=== PATIENT | male | born 1940 | race Caucasian/White ===

== ENCOUNTER 2017-07-05 10:04 | Emergency (ER) | payer MEDICARE ==
[~2017-07-05] VITALS: Ht 188 cm; Wt 82.5 kg
[~2017-07-05 10:04] MED LIST: ASPI325 PO; Aspir 8181 MG PO; Augmentin 875-1 EACH PO; Avodart0.5 MG PO; CHOL10002 PO; CIPR500 PO; Carbidopa-Levo1 EAC4 PO; DILT180 PO; DUTA.5 PO; Fish Oil 10001000 MG PO; Hydrocortiso453.6 G3 TP; IBUP400 PO; LEVFLO250 PO; LOSA50 PO; METR59TL TOP; Metronidazole T45 GM; Micro-K10 MEQ PO; Nicoderm Cq1 EAC1 TOP; Oxybutynin Chlo10 MG PO; POTA8 PO; Pravastatin Sod40 MG PO; Primidone50 MG PO; SINEMET PO; TAMS.4ER PO
== END 2017-07-05 13:17 | disposition home or self-care (01) ==
LOC: ER 10:04
DX: Z45.010 Encounter for checking and testing of cardiac pacemaker pulse generator [battery] (principal); I10 Essential (primary) hypertension; F17.210 Nicotine dependence, cigarettes, uncomplicated; Z79.899 Other long term (current) drug therapy; Z79.82 Long term (current) use of aspirin
CPT/HCPCS: 93005; 93010; 99283

== ENCOUNTER 2017-11-15 13:10 | Inpatient (IN) | payer MEDICARE ==
[~2017-11-15] VITALS: Ht 182.9 cm; Wt 94.3 kg
[2017-11-15 13:41] LABS: BASOPHILS ABSOLUTE AUTO 0.04 K/mm3 (0.00-0.23); BASOPHILS PERCENT AUTO 1 % (0-2); EOSINOPHILS ABSOLUTE AUTO 0.27 K/mm3 (0.00-0.68); EOSINOPHILS PERCENT AUTO 4 % (0-6); Hematocrit 47.1 % (37.0-53.0); Hemoglobin 14.6 g/dL (13.5-17.5); IMMATURE GRAN ABSOLUTE AUTO 0.02 K/mm3 (0.00-0.10); IMMATURE GRAN PERCENT AUTO 0 % (0-1); LYMPHOCYTES ABSOLUTE AUTO 1.36 K/mm3 (0.84-5.20); LYMPHOCYTES PERCENT AUTO 21 % (21-46); MONOCYTES ABSOLUTE AUTO 0.56 K/mm3 (0.16-1.47); MONOCYTES PERCENT AUTO 9 % (4-13); Mean Corpuscular HGB 28.9 pg (26.0-34.0); Mean Corpuscular Volume 93 fL (80-100); Mean Platelet Volume 10.5 fL (9.1-12.4); NEUTROPHILS PERCENT AUTO 65 % (41-73); Platelet Count 177 K/mm3 (150-400); RDW Coefficient Variation 13.9 % (11.7-14.2); RDW Standard Deviation 47.8 fL (35.1-46.3); Red Blood Cell Count 5.06 M/mm3 (4.30-5.90); White Blood Cell Count 6.45 K/mm3 (4.00-11.30)
[2017-11-15 13:48] LABS: Alanine Aminotransfer (ALT/SGP 11 U/L (12-78); Albumin, Blood 3.3 g/dL (3.4-5.0); Albumin/Globulin Ratio 0.9 (0.8-1.8); Alk Phos 57 U/L (50-136); Anion Gap 4 mmol/L (6-16); Aspartate Aminotrans (AST/SGOT 19 U/L (12-37); Bilirubin, Total 0.4 mg/dL (0.1-1.0); Blood Urea Nitrogen 23 mg/dL (8-24); Bun/Creatinine Ratio 25.1 (12.0-20.0); CO2, Blood 36 mmol/L (21-32); Calcium, Blood 8.6 mg/dL (8.5-10.1); Chloride, Blood 107 mmol/L (98-108); Creatinine, Blood 0.92 mg/dL (0.60-1.20); Globulin, Blood 3.8 g/dL (2.2-4.0); Glomerular Filtration Rate >60 (60-); Glucose, Blood 103 mg/dL (70-99); Potassium, Blood 3.7 mmol/L (3.5-5.5); Sodium, Blood 147 mmol/L (136-145); Total Protein, Blood 7.1 g/dL (6.4-8.2); Troponin I <0.015 ng/mL (0.000-0.040)
[2017-11-15] MEDS ORDERED: FOLI400 PO (13:56)
[2017-11-15] MEDS ORDERED: RIVASTIGMINE4.5 MG PO (13:58)
[2017-11-15] MEDS ORDERED: FURO20 PO (14:00)
[2017-11-15 16:44] LABS: PCO2 Arterial 73.4 mmHg (35-45); PO2 Arterial 55.1 mmHg (80-100); pH Blood Arterial 7.31 (7.35-7.45)
[2017-11-15 17:27] LABS: Magnesium, Blood 2.2 mg/dL (1.6-2.4)
[2017-11-15 20:19] LABS: PO2 Arterial 70.5 mmHg (80-100); pH Blood Arterial 7.32 (7.35-7.45)
[2017-11-16 03:13] LABS: Source, Urine Catheter
[2017-11-16 03:16] LABS: Bilirubin, Urine Neg (Neg); Blood, Urine 4+ (Neg); Glucose Qualitative, Urine Neg (Neg); Ketones, Urine Neg (Neg); Leukocyte Esterase, Urine Neg (Neg); Nitrite, Urine Pos (Neg); Protein, Urine 3+ (Neg); Urobilinogen, Urine NORM (Normal)
[2017-11-16 03:17] LABS: Appearance, Urine Clear (Clear); Color, Urine Yellow (P-Yellow)
[2017-11-16 03:21] LABS: Bacteria Few /hpf; Squamous Epithelial Cells Not Seen /hpf (Few)
[2017-11-16 03:39] LABS: BASOPHILS ABSOLUTE AUTO 0.01 K/mm3 (0.00-0.23); BASOPHILS PERCENT AUTO 0 % (0-2); EOSINOPHILS PERCENT AUTO 0 % (0-6); Hemoglobin 14.6 g/dL (13.5-17.5); IMMATURE GRAN ABSOLUTE AUTO 0.03 K/mm3 (0.00-0.10); IMMATURE GRAN PERCENT AUTO 0 % (0-1); LYMPHOCYTES ABSOLUTE AUTO 0.45 K/mm3 (0.84-5.20); LYMPHOCYTES PERCENT AUTO 5 % (21-46); MONOCYTES ABSOLUTE AUTO 0.18 K/mm3 (0.16-1.47); MONOCYTES PERCENT AUTO 2 % (4-13); Mean Corpuscular HGB 29.1 pg (26.0-34.0); Mean Corpuscular HGB Conc 31.7 g/dL (31.5-36.5); Mean Corpuscular Volume 92 fL (80-100); Mean Platelet Volume 10.2 fL (9.1-12.4); NEUTROPHILS ABSOLUTE AUTO 9.04 K/mm3 (1.96-9.15); NEUTROPHILS PERCENT AUTO 93 % (41-73); Platelet Count 131 K/mm3 (150-400); RDW Coefficient Variation 13.9 % (11.7-14.2); RDW Standard Deviation 46.8 fL (35.1-46.3); Red Blood Cell Count 5.02 M/mm3 (4.30-5.90); White Blood Cell Count 9.71 K/mm3 (4.00-11.30)
[2017-11-16 04:01] LABS: Anion Gap 10 mmol/L (6-16); Blood Urea Nitrogen 24 mg/dL (8-24); CO2, Blood 27 mmol/L (21-32); Calcium, Blood 8.2 mg/dL (8.5-10.1); Chloride, Blood 110 mmol/L (98-108); Creatinine, Blood 0.75 mg/dL (0.60-1.20); Glomerular Filtration Rate >60 (60-); Glucose, Blood 146 mg/dL (70-99); Potassium, Blood 3.8 mmol/L (3.5-5.5); Sodium, Blood 147 mmol/L (136-145); Troponin I <0.015 ng/mL (0.000-0.040)
[2017-11-17] MEDS ORDERED: Acetaminophen325 M1 PO (11:40)
[2017-11-17] MEDS ORDERED: PRED20 PO (11:41)
[2017-11-17] MEDS ORDERED: LEVOFLOXACIN750 MG PO (11:41)
== END 2017-11-17 14:31 | disposition home or self-care (01) | DRG 193 ==
LOC: ER 13:10 → ICUE 16:55 → ICUW 16:55 → ICUE 18:07 → MEDS 11-17 07:53 → ENPENDDIS 11-17 10:48 → MEDS 11-17 14:31
PROVIDERS: Emergency Medicine; Nurse Practitioner Acute Care
DX: J18.9 Pneumonia, unspecified organism (principal); J96.01 Acute respiratory failure with hypoxia; J96.02 Acute respiratory failure with hypercapnia; J44.0 Chronic obstructive pulmonary disease with (acute) lower respiratory infection; J44.1 Chronic obstructive pulmonary disease with (acute) exacerbation; G20 Parkinson's disease; E78.5 Hyperlipidemia, unspecified; F17.210 Nicotine dependence, cigarettes, uncomplicated; I10 Essential (primary) hypertension; R33.9 Retention of urine, unspecified
CPT/HCPCS: 36415; 36600; 71046; 71260; 80048; 80053; 81001; 82803; 83735; 83880; 84145; 84484; 85025; 87086; 87449; 92610; 93005; 93010; 94640; 94660; 96374; 99285; G8996; G8997; G8998; J0696; J1650; J1956; J2930; J7030; J7120; Q9967

== ENCOUNTER 2018-08-28 16:35 | Emergency (ER) | payer MEDICARE ==
[~2018-08-28] VITALS: Ht 188 cm; Wt 97.5 kg
[~2018-08-28 16:35] MED LIST changes: +Acetaminophen325 M1 PO; +FOLI400 PO; +FURO20 PO; +LEVOFLOXACIN750 MG PO; +PRED20 PO; +PRIM250 PO; -Primidone50 MG PO; +RIVASTIGMINE4.5 MG PO
[2018-08-28 17:38] LABS: Alanine Aminotransfer (ALT/SGP 9 U/L (12-78); Albumin, Blood 3.1 g/dL (3.4-5.0); Albumin/Globulin Ratio 0.9 (0.8-1.8); Alk Phos 105 U/L (50-136); Anion Gap 5 mmol/L (6-16); Aspartate Aminotrans (AST/SGOT 23 U/L (12-37); Blood Urea Nitrogen 15 mg/dL (8-24); Bun/Creatinine Ratio 19.4 (12.0-20.0); CO2, Blood 30 mmol/L (21-32); Calcium, Blood 8.6 mg/dL (8.5-10.1); Chloride, Blood 106 mmol/L (98-108); Creatinine, Blood 0.77 mg/dL (0.60-1.20); Globulin, Blood 3.5 g/dL (2.2-4.0); Glomerular Filtration Rate >60 (60-); Glucose, Blood 90 mg/dL (70-99); Potassium, Blood 3.6 mmol/L (3.5-5.5); Sodium, Blood 141 mmol/L (136-145); Total Protein, Blood 6.6 g/dL (6.4-8.2); Troponin I 0.021 ng/mL (0.000-0.040)
[2018-08-28 18:13] LABS: BASOPHILS ABSOLUTE AUTO 0.05 K/mm3 (0.00-0.23); BASOPHILS PERCENT AUTO 1 % (0-2); EOSINOPHILS PERCENT AUTO 3 % (0-6); Hematocrit 46.8 % (37.0-53.0); Hemoglobin 15.1 g/dL (13.5-17.5); IMMATURE GRAN ABSOLUTE AUTO 0.01 K/mm3 (0.00-0.10); IMMATURE GRAN PERCENT AUTO 0 % (0-1); LYMPHOCYTES ABSOLUTE AUTO 1.23 K/mm3 (0.84-5.20); LYMPHOCYTES PERCENT AUTO 21 % (21-46); MONOCYTES ABSOLUTE AUTO 0.55 K/mm3 (0.16-1.47); MONOCYTES PERCENT AUTO 9 % (4-13); Mean Corpuscular HGB 30.1 pg (26.0-34.0); Mean Corpuscular HGB Conc 32.3 g/dL (31.5-36.5); Mean Corpuscular Volume 93 fL (80-100); Mean Platelet Volume 10.6 fL (9.1-12.4); NEUTROPHILS ABSOLUTE AUTO 3.92 K/mm3 (1.96-9.15); NEUTROPHILS PERCENT AUTO 66 % (41-73); Platelet Count 166 K/mm3 (150-400); RDW Coefficient Variation 13.5 % (11.7-14.2); RDW Standard Deviation 46.2 fL (35.1-46.3); Red Blood Cell Count 5.02 M/mm3 (4.30-5.90); White Blood Cell Count 5.96 K/mm3 (4.00-11.30)
[2018-08-31] MEDS ORDERED: DUTA.5 PO (15:45)
[2018-09-01] MEDS ORDERED: CULTURELLE1 EACH PO (16:25)
[2018-09-01] MEDS ORDERED: K-Dur20 MEQ PO (16:28)
== END 2018-08-28 19:24 | disposition home or self-care (01) ==
LOC: ER 16:35
PROVIDERS: Emergency Medicine
DX: E86.0 Dehydration (principal); R19.7 Diarrhea, unspecified; I10 Essential (primary) hypertension; G20 Parkinson's disease; F02.80 Dementia in other diseases classified elsewhere, unspecified severity, without behavioral disturbance, psychotic disturbance, mood disturbance, and anxiety; Z79.899 Other long term (current) drug therapy; Z79.52 Long term (current) use of systemic steroids
CPT/HCPCS: 36415; 71046; 80053; 83735; 83880; 84484; 85025; 93005; 93010; 96360; 96361; 99284-25; J7030

== ENCOUNTER 2018-12-11 13:04 | Emergency (ER) | payer MEDICARE ==
[~2018-12-11] VITALS: Ht 188 cm; Wt 93.0 kg
[~2018-12-11 13:04] MED LIST changes: +CULTURELLE1 EACH PO; +K-Dur20 MEQ PO; +LOPE2C PO
[2018-12-11 13:28] LABS: BASOPHILS ABSOLUTE AUTO 0.03 K/mm3 (0.00-0.23); BASOPHILS PERCENT AUTO 1 % (0-2); EOSINOPHILS ABSOLUTE AUTO 0.23 K/mm3 (0.00-0.68); EOSINOPHILS PERCENT AUTO 4 % (0-6); Hematocrit 46.3 % (37.0-53.0); Hemoglobin 14.8 g/dL (13.5-17.5); IMMATURE GRAN PERCENT AUTO 0 % (0-1); LYMPHOCYTES ABSOLUTE AUTO 2.12 K/mm3 (0.84-5.20); LYMPHOCYTES PERCENT AUTO 37 % (21-46); MONOCYTES ABSOLUTE AUTO 0.44 K/mm3 (0.16-1.47); MONOCYTES PERCENT AUTO 8 % (4-13); Mean Corpuscular HGB 29.4 pg (26.0-34.0); Mean Corpuscular Volume 92 fL (80-100); Mean Platelet Volume 10.4 fL (9.1-12.4); NEUTROPHILS ABSOLUTE AUTO 2.87 K/mm3 (1.96-9.15); NEUTROPHILS PERCENT AUTO 51 % (41-73); Platelet Count 176 K/mm3 (150-400); RDW Coefficient Variation 14.7 % (11.7-14.2); RDW Standard Deviation 49.8 fL (35.1-46.3); Red Blood Cell Count 5.04 M/mm3 (4.30-5.90); White Blood Cell Count 5.69 K/mm3 (4.00-11.30)
[2018-12-11 13:54] LABS: Alanine Aminotransfer (ALT/SGP 9 U/L (12-78); Albumin, Blood 3.1 g/dL (3.4-5.0); Albumin/Globulin Ratio 0.9 (0.8-1.8); Alk Phos 66 U/L (50-136); Anion Gap 3 mmol/L (6-16); Aspartate Aminotrans (AST/SGOT 18 U/L (12-37); Bilirubin, Total 0.7 mg/dL (0.1-1.0); Blood Urea Nitrogen 24 mg/dL (8-24); CO2, Blood 30 mmol/L (21-32); Calcium, Blood 8.6 mg/dL (8.5-10.1); Chloride, Blood 111 mmol/L (98-108); Creatinine, Blood 1.09 mg/dL (0.60-1.20); Globulin, Blood 3.3 g/dL (2.2-4.0); Glomerular Filtration Rate >60 (60-); Glucose, Blood 97 mg/dL (70-99); Potassium, Blood 3.6 mmol/L (3.5-5.5); Sodium, Blood 144 mmol/L (136-145); Total Protein, Blood 6.4 g/dL (6.4-8.2); Troponin I <0.015 ng/mL (0.000-0.040)
[2018-12-11 14:14] LABS: Source, Urine Clean Catch
[2018-12-11 14:24] LABS: Bilirubin, Urine Neg (Neg); Blood, Urine 1+ (Neg); Glucose Qualitative, Urine Neg (Neg); Ketones, Urine Neg (Neg); Leukocyte Esterase, Urine Neg (Neg); Nitrite, Urine Pos (Neg); Protein, Urine 2+ (Neg); Specific Gravity, Urine 1.015 (1.003-1.022); Urobilinogen, Urine NORM (Normal)
[2018-12-11 14:32] LABS: Appearance, Urine Clear (Clear); Color, Urine Yellow (P-Yellow)
[2018-12-11 14:33] LABS: Squamous Epithelial Cells Rare /hpf (Few); White Blood Cells, Urine 0-2 /hpf (0-5)
[2018-12-11 14:34] LABS: Bacteria Rare /hpf; Hyaline Casts 0-2 /lpf (0-2); Mucus Mod (0-Heavy)
[2018-12-11] MEDS ORDERED: Zithromax250 MG PO (15:14)
== END 2018-12-11 16:59 | disposition home or self-care (01) ==
LOC: ER 13:04
PROVIDERS: Emergency Medicine
DX: J18.9 Pneumonia, unspecified organism (principal); R53.1 Weakness; Z79.899 Other long term (current) drug therapy; I10 Essential (primary) hypertension; Z86.73 Personal history of transient ischemic attack (TIA), and cerebral infarction without residual deficits
CPT/HCPCS: 51701; 71046; 80053; 81001; 83880; 84484; 85025; 93005; 93010; 99285-25

== ENCOUNTER 2018-12-21 12:47 | Emergency (ER) | payer MEDICARE ==
[~2018-12-21] VITALS: Ht 188 cm; Wt 95.2 kg
[~2018-12-21 12:47] MED LIST changes: +Zithromax250 MG PO
[2018-12-21 13:43] LABS: Source, Urine Catheter
[2018-12-21 14:31] LABS: Bilirubin, Urine Neg (Neg); Blood, Urine 3+ (Neg); Glucose Qualitative, Urine Neg (Neg); Ketones, Urine Neg (Neg); Leukocyte Esterase, Urine 1+ (Neg); Nitrite, Urine Pos (Neg); Protein, Urine 3+ (Neg); Urobilinogen, Urine NORM (Normal)
[2018-12-21 14:43] LABS: Appearance, Urine Hazy (Clear); Color, Urine Yellow (P-Yellow)
[2018-12-21 14:45] LABS: Bacteria Many /hpf; Squamous Epithelial Cells Not Seen /hpf (Few); White Blood Cells, Urine 0-2 /hpf (0-5)
[2018-12-21] MEDS ORDERED: CEPH500 PO (15:04)
== END 2018-12-21 15:12 | disposition home or self-care (01) ==
LOC: ER 12:47
PROVIDERS: Physician Assistant
DX: N39.0 Urinary tract infection, site not specified (principal); I10 Essential (primary) hypertension; G20 Parkinson's disease; F02.80 Dementia in other diseases classified elsewhere, unspecified severity, without behavioral disturbance, psychotic disturbance, mood disturbance, and anxiety; F17.210 Nicotine dependence, cigarettes, uncomplicated; Z79.899 Other long term (current) drug therapy
CPT/HCPCS: 51798; 81001; 87086; 99283

== ENCOUNTER 2019-02-15 22:55 | Inpatient (IN) | payer MEDICARE ==
[~2019-02-15] VITALS: Ht 182.9 cm; Wt 96.6 kg
[~2019-02-15 22:55] MED LIST changes: +CEPH500 PO
[2019-02-15 23:10] LABS: Hematocrit 48.4 % (37.0-53.0); Hemoglobin 15.5 g/dL (13.5-17.5); Mean Corpuscular HGB 29.5 pg (26.0-34.0); Mean Corpuscular Volume 92 fL (80-100); Mean Platelet Volume 9.9 fL (9.1-12.4); Platelet Count 148 K/mm3 (150-400); RDW Coefficient Variation 14.1 % (11.7-14.2); RDW Standard Deviation 47.8 fL (35.1-46.3); Red Blood Cell Count 5.25 M/mm3 (4.30-5.90); White Blood Cell Count 5.62 K/mm3 (4.00-11.30)
[2019-02-15 23:30] LABS: BAND PERCENT MAN 24 % (0-8); BASOPHILS PERCENT MAN 0 % (0-2); EOSINOPHILS PERCENT MAN 0 % (0-6); LYMPHOCYTES ABSOLUTE MAN 0.28 K/mm3 (0.84-5.20); LYMPHOCYTES PERCENT MAN 5 % (21-46); MONOCYTES ABSOLUTE MAN 0.28 K/mm3 (0.16-1.47); MONOCYTES PERCENT MAN 5 % (4-13); NEUTROPHILS ABSOLUTE MAN 5.05 K/mm3 (1.96-9.15); SEG NEUTROPHILS PERCENT MAN 66 % (41-73); TOTAL CELLS COUNTED 100
[2019-02-15 23:31] LABS: Alanine Aminotransfer (ALT/SGP 80 U/L (12-78); Albumin, Blood 3.1 g/dL (3.4-5.0); Albumin/Globulin Ratio 0.9 (0.8-1.8); Alk Phos 203 U/L (50-136); Anion Gap 6 mmol/L (6-16); Aspartate Aminotrans (AST/SGOT 460 U/L (12-37); Bilirubin, Total 3.5 mg/dL (0.1-1.0); Blood Urea Nitrogen 21 mg/dL (8-24); Bun/Creatinine Ratio 22.8 (12.0-20.0); CO2, Blood 29 mmol/L (21-32); Calcium, Blood 8.3 mg/dL (8.5-10.1); Chloride, Blood 110 mmol/L (98-108); Creatinine, Blood 0.92 mg/dL (0.60-1.20); Globulin, Blood 3.6 g/dL (2.2-4.0); Glomerular Filtration Rate >60 (60-); Glucose, Blood 145 mg/dL (70-99); Potassium, Blood 3.1 mmol/L (3.5-5.5); Sodium, Blood 145 mmol/L (136-145); Total Protein, Blood 6.7 g/dL (6.4-8.2); Troponin I 0.017 ng/mL (0.000-0.040)
[2019-02-16 06:25] LABS: Hematocrit 47.6 % (37.0-53.0); Hemoglobin 15.3 g/dL (13.5-17.5); Mean Corpuscular HGB 29.8 pg (26.0-34.0); Mean Corpuscular HGB Conc 32.1 g/dL (31.5-36.5); Mean Corpuscular Volume 93 fL (80-100); Mean Platelet Volume 10.6 fL (9.1-12.4); Platelet Count 146 K/mm3 (150-400); RDW Coefficient Variation 14.6 % (11.7-14.2); RDW Standard Deviation 49.8 fL (35.1-46.3); Red Blood Cell Count 5.13 M/mm3 (4.30-5.90); White Blood Cell Count 11.25 K/mm3 (4.00-11.30)
[2019-02-16 06:39] LABS: Alanine Aminotransfer (ALT/SGP 59 U/L (12-78); Albumin, Blood 2.9 g/dL (3.4-5.0); Albumin/Globulin Ratio 0.9 (0.8-1.8); Alk Phos 181 U/L (50-136); Anion Gap 5 mmol/L (6-16); Aspartate Aminotrans (AST/SGOT 322 U/L (12-37); Bilirubin, Total 4.6 mg/dL (0.1-1.0); Blood Urea Nitrogen 21 mg/dL (8-24); Bun/Creatinine Ratio 21.2 (12.0-20.0); CO2, Blood 28 mmol/L (21-32); Calcium, Blood 7.8 mg/dL (8.5-10.1); Chloride, Blood 112 mmol/L (98-108); Creatinine, Blood 0.99 mg/dL (0.60-1.20); Globulin, Blood 3.3 g/dL (2.2-4.0); Glomerular Filtration Rate >60 (60-); Glucose, Blood 121 mg/dL (70-99); Potassium, Blood 3.7 mmol/L (3.5-5.5); Sodium, Blood 145 mmol/L (136-145); Total Protein, Blood 6.2 g/dL (6.4-8.2)
--- NOTE | 2019-02-16 06:50 | NUR ---
ASSUMED CARE/ASSESSMENT PT ARRIVES TO UNIT JUST PRIOR TO 0520 VIA STRETCHER AND TSA SCREENER. PT CAN TELL ME WHO HE IS, AND HIS AND KNOWS HES IN THE HOSPITAL. HIS SPEECH IS GARBLED AND HE IS SLOW TO RESPOND, PER ER NURSE THIS IS THE MOST RESPONSIVE HE HAS BEEN. PT IS INCONTINENT, AND WAS SATURATED IN URINE. AFTER CLEANING HIM UP A CONDOM CATH WAS APPLIED. PT HAS STABLE VITALS AND IS AFEBRILE, COMPLAINS OF NO PAIN AT THIS MOMENT. IS ALLOWED IN THE ROOM, AND HAS BEEN A GREAT HELP ANSWERING QUESTIONS ABOUT HISTORY. PT IS COUGHING, AND SOUNDS SLIGHTLY WHEEZY, DIMINISHED AND IS TAKING SOMEWHAT SHALLOW BREATHS. PT HAS POOR FUNCTIONING STATUS AT HOME, AND SEEMS TO BE DOING WORSE RECENTLY, AND CURRENTLY REQUIRES A LOT OF CARE. PT IS ABLE TO HOLD YANKUR TO MOUTH FOR SUCTIONING. NORMAL SALINE IS INFUSING CURRENTLY ALONG WITH KCL PB, AND CLINDAMYCIN. HIS IV SITES ARE WNL, INFUSING FINE, NO SIGNS OF INFILTRATION. BED IS LOW AND LOCKED. CALL LIGHT WITHIN REACH.
[2019-02-16] MEDS ORDERED: Sinemet 25-1001 EACH PO (10:00)
[2019-02-16] MEDS ORDERED: SINEMET 25-1001 EACH (10:03)
[2019-02-16] MEDS ORDERED: ASPI81CH PO (10:08)
--- NOTE | 2019-02-16 11:15 | NUR ---
TRANSFER TO MED: PT TRANSFERED TO MEDICAL FLOOR REPORT GIVEN TO ANITA QUIJANO. PT OUT THE DOOR WITH MEDICATIONS AND IVF.
--- NOTE | 2019-02-16 12:12 | NUR ---
RECEIEVED REPORT FROM [facility] AT 1055. PATIENT ARRIVED TO ROOM 337 AT 1110 AND WAS TRANSFERED FROM BEDS WITH THE ASSIST OF 3 STAFF MEMBERS. PATIENT HAS BEEN COOPERATIVE WITH STAFF. CURRENTLY AT BEDSIDE.
[2019-02-16 12:54] LABS: Adenovirus Not Detected (NOT DETECT); Bordetella pertussis Not Detected (NOT DETECT); Chlamydophila pneumoniae Not Detected (NOT DETECT); Coronavirus 229E Not Detected (NOT DETECT); Coronavirus HKU1 Not Detected (NOT DETECT); Coronavirus NL63 Not Detected (NOT DETECT); Coronavirus OC43 Not Detected (NOT DETECT); Human Metapneumovirus Not Detected (NOT DETECT); Human Rhinovirus/Enterovirus Not Detected (NOT DETECT); Influenza A Not Detected (NOT DETECT); Influenza A/2009-H1 Not Detected (NOT DETECT); Influenza A/H1 Not Detected (NOT DETECT); Influenza A/H3 Not Detected (NOT DETECT); Influenza B Not Detected (NOT DETECT); Mycoplasma pneumoniae Not Detected (NOT DETECT); Parainfluenza Virus 1 Not Detected (NOT DETECT); Parainfluenza Virus 2 Not Detected (NOT DETECT); Parainfluenza Virus 3 Not Detected (NOT DETECT); Parainfluenza Virus 4 Not Detected (NOT DETECT); Respiratory Syncytial Virus Not Detected (NOT DETECT)
--- NOTE | 2019-02-16 14:43 | NUR ---
RETURNED CALL TO MOISES, PATIENT'S DAUGHTER. NO ONE ANSWERED THE TELEPHONE. BRIEF MESSAGE LEFT INDICATING PATIENT TO RETURN CALL WHEN AVAILABLE IF SHE STILL WANTS TO TALK OR HAS QUESTIONS.
--- NOTE | 2019-02-16 15:07 | NUR ---
MOISES, PATIENT'S DAUGHTER, CALLED BACK AND ASKED FOR AN UPDATE OF PATIENT'S CONDITION. MOISES IS LISTED ON PATIENT'S CONTACT FORM. MOISES ASKED MANY QUESTIONS AND ANSWERS GIVEN TO HER SATISFACTION.
--- NOTE | 2019-02-16 16:35 | NUR ---
SHIFT SUMMARY THE PATIENT IS A BIT CONFUSED. HE DOES NOT WANT TO BE HERE AND WANTS TO GO HOME AND DOES NOT UNDERSTAND WHY HE CAN NOT GET UP AND JUST LEAVE. PATIENT'S STATES HE DOESN'T AMBULATE AT BASELINE. WE HAVE BEEN TURNING PATIENT Q2HRS AT MINIMUM AND CHANGING HIS BRIEF NEEDED. RASH NOTED TO EDU-AREA/GROIN; BARRIER CREAM APPLIED. LAB CALLED DOWN ASKING ABOUT AN UNCOLLECTED U/A THAT WAS ORDERED IN THE ER. PLACED A CONDOM CATH ON THE PATIENT TO ATTEMPT TO COLLECT THE UA. WILL CONTINUE TO MONITOR AND PROVIDE CARE NEEDED.
--- NOTE | 2019-02-17 02:16 | NUR ---
VEWS SCORE OF 5 FOR TEMP OF 102.7 AND RESP RATE OF 28. NOTIFIED BY POCKET SETTER LOCKSTITCH. TYLENOL ADMINISTERED RECTALLY AND RN NOTIFIED.
--- NOTE | 2019-02-17 02:50 | NUR ---
APPLIED ICE BAGS UNDER ARMS. PT AHAS INCREASING TREMORS. REVIEWED HOME MEDS FOR PARKKINSONS MEDS. PT ALSO TAKES AND ANTICONVULSANT AND RIVASTIGMINE. THESE MEDS ARE AVAILABLE IN DIFFERNET FORMS THRU THE PHARMACY. WILL CALL CHIEF LOCK TENDER OPERATOR HOSPITALIST TO SEE IF WE CAN GET ORDERS FOR THEM. CALLED RT AND PT RECVD BREATHING TX. BED LOW LOCKED AND ALARMED. CALL MCLAIN WITHIN REACH
[2019-02-17 08:47] LABS: BASOPHILS ABSOLUTE AUTO 0.02 K/mm3 (0.00-0.23); BASOPHILS PERCENT AUTO 0 % (0-2); EOSINOPHILS PERCENT AUTO 0 % (0-6); Hematocrit 42.7 % (37.0-53.0); Hemoglobin 13.7 g/dL (13.5-17.5); IMMATURE GRAN ABSOLUTE AUTO 0.02 K/mm3 (0.00-0.10); IMMATURE GRAN PERCENT AUTO 0 % (0-1); LYMPHOCYTES ABSOLUTE AUTO 0.62 K/mm3 (0.84-5.20); LYMPHOCYTES PERCENT AUTO 9 % (21-46); MONOCYTES ABSOLUTE AUTO 0.49 K/mm3 (0.16-1.47); MONOCYTES PERCENT AUTO 7 % (4-13); Mean Corpuscular HGB 29.7 pg (26.0-34.0); Mean Corpuscular HGB Conc 32.1 g/dL (31.5-36.5); Mean Corpuscular Volume 93 fL (80-100); Mean Platelet Volume 10.6 fL (9.1-12.4); NEUTROPHILS ABSOLUTE AUTO 5.75 K/mm3 (1.96-9.15); NEUTROPHILS PERCENT AUTO 83 % (41-73); Platelet Count 124 K/mm3 (150-400); RDW Coefficient Variation 14.9 % (11.7-14.2); RDW Standard Deviation 50.5 fL (35.1-46.3); Red Blood Cell Count 4.61 M/mm3 (4.30-5.90)
[2019-02-17 09:07] LABS: Alanine Aminotransfer (ALT/SGP 192 U/L (12-78); Albumin, Blood 2.7 g/dL (3.4-5.0); Albumin/Globulin Ratio 0.8 (0.8-1.8); Alk Phos 155 U/L (50-136); Anion Gap 4 mmol/L (6-16); Aspartate Aminotrans (AST/SGOT 120 U/L (12-37); Bilirubin, Total 4.4 mg/dL (0.1-1.0); Blood Urea Nitrogen 22 mg/dL (8-24); Bun/Creatinine Ratio 22.3 (12.0-20.0); CO2, Blood 27 mmol/L (21-32); Calcium, Blood 7.7 mg/dL (8.5-10.1); Chloride, Blood 117 mmol/L (98-108); Creatinine, Blood 0.99 mg/dL (0.60-1.20); Globulin, Blood 3.3 g/dL (2.2-4.0); Glomerular Filtration Rate >60 (60-); Glucose, Blood 118 mg/dL (70-99); Potassium, Blood 3.3 mmol/L (3.5-5.5); Sodium, Blood 148 mmol/L (136-145)
--- NOTE | 2019-02-17 12:14 | NUR ---
echocardiogram completed
--- NOTE | 2019-02-17 17:44 | NUR ---
PT LAYING IN BED THROUGHOUT THE SHIFT. PT REPOSITIONED THROUGHOUT THIS SHIFT. PT A/O WITH IN THE ROOM FOR PERIODS OF THIS SHIFT. PT COOPERATIVE WITH CARE. PT NPO, PROVIDED WITH ORAL CARE THROUGHOUT THE SHIFT. PT CURRENTLY LAYING IN BED TALKING TO ON PHONE. PT STATES NO NEEDS AT THIS TIME. WILL CONTINUE TO MONITOR.
[2019-02-18 05:49] LABS: BASOPHILS ABSOLUTE AUTO 0.02 K/mm3 (0.00-0.23); BASOPHILS PERCENT AUTO 0 % (0-2); EOSINOPHILS ABSOLUTE AUTO 0.13 K/mm3 (0.00-0.68); EOSINOPHILS PERCENT AUTO 3 % (0-6); IMMATURE GRAN ABSOLUTE AUTO 0.02 K/mm3 (0.00-0.10); IMMATURE GRAN PERCENT AUTO 0 % (0-1); LYMPHOCYTES ABSOLUTE AUTO 0.62 K/mm3 (0.84-5.20); LYMPHOCYTES PERCENT AUTO 12 % (21-46); MONOCYTES ABSOLUTE AUTO 0.39 K/mm3 (0.16-1.47); MONOCYTES PERCENT AUTO 7 % (4-13); Mean Corpuscular HGB Conc 32.6 g/dL (31.5-36.5); Mean Corpuscular Volume 92 fL (80-100); Mean Platelet Volume 10.8 fL (9.1-12.4); NEUTROPHILS ABSOLUTE AUTO 4.06 K/mm3 (1.96-9.15); NEUTROPHILS PERCENT AUTO 78 % (41-73); Platelet Count 127 K/mm3 (150-400); RDW Coefficient Variation 14.8 % (11.7-14.2); RDW Standard Deviation 50.3 fL (35.1-46.3); Red Blood Cell Count 4.66 M/mm3 (4.30-5.90); White Blood Cell Count 5.24 K/mm3 (4.00-11.30)
[2019-02-18 06:00] LABS: International Normalized Ratio 1.15
[2019-02-18 06:14] LABS: Alanine Aminotransfer (ALT/SGP 54 U/L (12-78); Albumin, Blood 2.7 g/dL (3.4-5.0); Albumin/Globulin Ratio 0.8 (0.8-1.8); Alk Phos 159 U/L (50-136); Anion Gap 5 mmol/L (6-16); Aspartate Aminotrans (AST/SGOT 75 U/L (12-37); Bilirubin, Total 2.8 mg/dL (0.1-1.0); Blood Urea Nitrogen 17 mg/dL (8-24); Bun/Creatinine Ratio 21.8 (12.0-20.0); CO2, Blood 26 mmol/L (21-32); Calcium, Blood 7.9 mg/dL (8.5-10.1); Chloride, Blood 115 mmol/L (98-108); Creatinine, Blood 0.78 mg/dL (0.60-1.20); Globulin, Blood 3.6 g/dL (2.2-4.0); Glomerular Filtration Rate >60 (60-); Glucose, Blood 84 mg/dL (70-99); Potassium, Blood 3.2 mmol/L (3.5-5.5); Sodium, Blood 146 mmol/L (136-145); Total Protein, Blood 6.3 g/dL (6.4-8.2)
--- NOTE | 2019-02-18 06:24 | NUR ---
SHIFT SUMMARY PT IS A 78 Y/O MALE, ADMITTED FOR AMS AND POSSIBLE STROKE. HE IS A&O X 2-3, AND VERY FORGETFUL, THOUGH COOPERATIVE WITH CARE. PT IS INCONTINENT, TURN Q2H. HE DENIED ANY COMPLAINTS OF PAIN, NAUSEA OR SOB DURING THE NIGHT. VITAL SIGNS STABLE. NO OTHER ACUTE CHANGES IN PT CONDITION NOTED. WILL CONTINUE TO MONITOR AND TREAT PER EMAR UNTIL HAND OFF TO DAY SHIFT RN.
--- NOTE | 2019-02-18 17:27 | NUR ---
PT MORE ALERT THIS SHIFT. P/T WORKED WITH PT AND GOT HIM UP IN CHAIR. PT GIVEN SIPS OF WATER PER DR HARRIS. PT SAT IN CHAIR FOR APPROX 1 HR. PT BACK IN BED, THEN UP FOR BM. PT'S IN ROOM WITH PT FOR PERIODS OF THIS SHIFT. PT AWAKE AND WATCHING TELEVISION, UNABLE TO CHANGE CHANNEL ON OWN. PT CONFUSED AFTER CARE AT ONE POINT THIS AFTERNOON, ASKING WHEN HE WAS GOING BACK TO HIS ROOM. PT STATES NO ADDITIONAL NEEDS AT THIS TIME. WILL CONTINUE TO MONITOR.
--- NOTE | 2019-02-19 05:58 | NUR ---
SHIFT SUMMARY PT IS A 78 Y/O MALE, ADMITTED FOR AMS. HE IS A&O X 2, FORGETFUL AT TIMES BUT COOPERATIVE WITH CARE. PT IS ON BEDREST, INCONTINENT, TURN Q2H. NO COMPLAINTS OF PAIN, NAUSEA OR SOB. PT'S BP HAS BEEN ELEVATED DURING THE NIGHT, IN THE 170S, PT IS NOT CURRENTLY ON HIS HOME BP REGIMEN. ALL OTHER VITALS STABLE. NO OTHER ACUTE CHANGES IN PT CONDITION NOTES. WILL CONTINUE TO MONITOR AND TREAT PER EMAR UNTIL HAND OFF TO DAY SHIFT RN.
[2019-02-19 08:16] LABS: BASOPHILS ABSOLUTE AUTO 0.03 K/mm3 (0.00-0.23); BASOPHILS PERCENT AUTO 1 % (0-2); EOSINOPHILS ABSOLUTE AUTO 0.17 K/mm3 (0.00-0.68); EOSINOPHILS PERCENT AUTO 3 % (0-6); Hematocrit 46.9 % (37.0-53.0); Hemoglobin 15.1 g/dL (13.5-17.5); IMMATURE GRAN ABSOLUTE AUTO 0.03 K/mm3 (0.00-0.10); IMMATURE GRAN PERCENT AUTO 1 % (0-1); LYMPHOCYTES ABSOLUTE AUTO 0.93 K/mm3 (0.84-5.20); LYMPHOCYTES PERCENT AUTO 16 % (21-46); MONOCYTES ABSOLUTE AUTO 0.48 K/mm3 (0.16-1.47); MONOCYTES PERCENT AUTO 8 % (4-13); Mean Corpuscular HGB 29.3 pg (26.0-34.0); Mean Corpuscular HGB Conc 32.2 g/dL (31.5-36.5); Mean Corpuscular Volume 91 fL (80-100); Mean Platelet Volume 10.7 fL (9.1-12.4); NEUTROPHILS ABSOLUTE AUTO 4.36 K/mm3 (1.96-9.15); NEUTROPHILS PERCENT AUTO 73 % (41-73); Platelet Count 165 K/mm3 (150-400); RDW Coefficient Variation 14.9 % (11.7-14.2); RDW Standard Deviation 50.4 fL (35.1-46.3); Red Blood Cell Count 5.16 M/mm3 (4.30-5.90)
[2019-02-19 08:37] LABS: Alanine Aminotransfer (ALT/SGP 60 U/L (12-78); Albumin, Blood 2.8 g/dL (3.4-5.0); Albumin/Globulin Ratio 0.8 (0.8-1.8); Alk Phos 164 U/L (50-136); Anion Gap 8 mmol/L (6-16); Aspartate Aminotrans (AST/SGOT 58 U/L (12-37); Bilirubin, Total 2.5 mg/dL (0.1-1.0); Blood Urea Nitrogen 19 mg/dL (8-24); Bun/Creatinine Ratio 25.7 (12.0-20.0); CO2, Blood 23 mmol/L (21-32); Calcium, Blood 7.9 mg/dL (8.5-10.1); Chloride, Blood 113 mmol/L (98-108); Creatinine, Blood 0.74 mg/dL (0.60-1.20); Globulin, Blood 3.7 g/dL (2.2-4.0); Glomerular Filtration Rate >60 (60-); Glucose, Blood 70 mg/dL (70-99); Potassium, Blood 3.3 mmol/L (3.5-5.5); Sodium, Blood 144 mmol/L (136-145); Total Protein, Blood 6.5 g/dL (6.4-8.2)
--- NOTE | 2019-02-19 18:41 | NUR ---
SHIFT SUMMARY PT AWAKE AT START OF SHIFT, SITTING IN CHAIR AT BS. SMILING AND CHEERFUL. PT VERY WEAK, BUT IMPROVED SOME DURING THE DAY, WORKING WITH P/T. PT WANTING TO EAT AND DRINK AT BREAKFAST TODAY. DR HARRIS IN TO SEE PT THIS AM. SPEECH EVAL ORDERED SO PT COULD EAT PER RECOMMENDATIONS. PT REMAINS AN ASPIRATION RISK D/T PARKINSONS. PT IS FORGETFUL AND DOES NOT LIKE TO FOLLOW SP RECOMMENDATIONS, BUT HAS DONE BETTER ON THEM AND NOT COUGHING. DR BEASLEY IN TO SEE PT EARLY. LABS ORDERED AND DR BEASLEY RETURNED AGAIN LATER WELL, TO DISCUSS RESULTS WITH PT AND . DR LUIS HERE TO SEE PT EARLY. NO NEW ORDERS. BP ELEVATED, SEE CHART, DR HARRIS AWARE. PT HAD BEEN NPO AND UNABLE TO TAKE MEDICATIONS ORDERED WELL PERMISSIVE HTN FOR STROKE PROTOCOL. PT IS CONTINENT AND INCONTINENT OF BLADDER. PT HAS BEEN OOB AND TO CHAIR SEVERAL TIMES TODAY. IMPROVING OVERALL. IV ABX ADMIN PER EMAR. AT BS. CALL LT IN REACH.
--- NOTE | 2019-02-20 05:30 | NUR ---
SHIFT SUMMARY: 78 Y/O MALE, 2 PERSON ASSIST. WAS UP IN CHAIR AT BEGINNING OF THE SHIFT. WAS TRANSFERRED WITH USE OF 2 PERSON, AND WALKER, HE WAS ABLE TO GET SELF INTO THE BED ONCE SITTING DOWN. PATIENT HAS A VERY FLAT EFFECT, FORGETFUL AND GOT CONFUSED LATER IN THE NIGHT, FORGETTING WHERE HE WAS AT. HE REMAINED APPROPRIATE AND NEVER SOUNDED OFF HIS BEDALARM. MEDS WERE GIVEN PER EMAR. GAVE HONEY THICKEN WATER AND JUICE TO HIM. HE REMAINED SITTING UP AFTERWARDS. HE DENIED ANY COMPLAINTS OR PAIN ALL NIGHT, SLEEPING OFF AND ON. WILL REPORT TO DAY SHIFT RN.
[2019-02-20 07:45] LABS: BASOPHILS ABSOLUTE AUTO 0.03 K/mm3 (0.00-0.23); BASOPHILS PERCENT AUTO 1 % (0-2); EOSINOPHILS ABSOLUTE AUTO 0.24 K/mm3 (0.00-0.68); EOSINOPHILS PERCENT AUTO 4 % (0-6); Hematocrit 47.3 % (37.0-53.0); Hemoglobin 15.5 g/dL (13.5-17.5); IMMATURE GRAN ABSOLUTE AUTO 0.03 K/mm3 (0.00-0.10); IMMATURE GRAN PERCENT AUTO 1 % (0-1); LYMPHOCYTES ABSOLUTE AUTO 1.14 K/mm3 (0.84-5.20); LYMPHOCYTES PERCENT AUTO 19 % (21-46); MONOCYTES ABSOLUTE AUTO 0.66 K/mm3 (0.16-1.47); MONOCYTES PERCENT AUTO 11 % (4-13); Mean Corpuscular HGB 29.6 pg (26.0-34.0); Mean Corpuscular HGB Conc 32.8 g/dL (31.5-36.5); Mean Corpuscular Volume 90 fL (80-100); Mean Platelet Volume 10.4 fL (9.1-12.4); NEUTROPHILS ABSOLUTE AUTO 3.88 K/mm3 (1.96-9.15); NEUTROPHILS PERCENT AUTO 65 % (41-73); Platelet Count 177 K/mm3 (150-400); RDW Coefficient Variation 14.9 % (11.7-14.2); RDW Standard Deviation 49.4 fL (35.1-46.3); Red Blood Cell Count 5.23 M/mm3 (4.30-5.90); White Blood Cell Count 5.98 K/mm3 (4.00-11.30)
[2019-02-20 08:06] LABS: Alanine Aminotransfer (ALT/SGP 73 U/L (12-78); Albumin/Globulin Ratio 0.8 (0.8-1.8); Alk Phos 175 U/L (50-136); Anion Gap 7 mmol/L (6-16); Aspartate Aminotrans (AST/SGOT 115 U/L (12-37); Bilirubin, Total 1.8 mg/dL (0.1-1.0); Blood Urea Nitrogen 18 mg/dL (8-24); Bun/Creatinine Ratio 22.5 (12.0-20.0); CO2, Blood 25 mmol/L (21-32); Calcium, Blood 7.7 mg/dL (8.5-10.1); Chloride, Blood 112 mmol/L (98-108); Globulin, Blood 3.9 g/dL (2.2-4.0); Glomerular Filtration Rate >60 (60-); Glucose, Blood 87 mg/dL (70-99); Potassium, Blood 3.1 mmol/L (3.5-5.5); Sodium, Blood 144 mmol/L (136-145); Total Protein, Blood 6.9 g/dL (6.4-8.2)
--- NOTE | 2019-02-20 18:18 | NUR ---
SHIFT SUMMARY PT SITTING IN CHAIR THIS AM AT START OF SHIFT. VERY CONFUSED AND ANGRY THAT HE HAD BEEN "LOCKED IN HIS BEDRM AND HIS CAR KEYS TAKEN AWAY FROM HIM SO THAT HE COULD GO TO THE STORE". REPORTED THAT PT IS OFTEN CONFUSED IN THE AM, BUT "BECOMES LESS CONFUSED THE DAY GOES ON". PT ASSISTED BACK INTO BED AFTER BREAKFAST. DR HARRIS IN TO SEE PT AND D/C TO HOME. SP LATER IN TO EVAL PT FOR D/C. PER SP, PT DID NOT DO WELL DURING EVAL AND WANTED PT TO HAVE BARIUM SWALLOW BEFORE GOING HOME. PT MADE STRICT NPO UNTIL EVAL COULD BE COMPLETED. D/C HELD UNTIL AM. PT WAS VERY ANGRY AT HAVING TO STAY ANOTHER NIGHT. WENT HOME FOR A WHILE AND LATER RETURNED AND TOOK PT OUTSIDE FOR A WHILE. PT NOW BACK TO AND SITTING ON BSC FOR BM. PT HAS BEEN INCONTINENT OF BLADDER MOST OF THE DAY. NO C/O PAIN. MOBILITY IMPROVING SOME IN PAST COUPLE OF DAYS. CALL LT IN REACH.
--- NOTE | 2019-02-21 05:18 | NUR ---
02/21/19 0500 HELPED TO BSC WITH TWO STAFF. NEEDS FREQUENT REDIRECTION WHEN UP WITH WALKER. CONFUSED TO ALL BUT SELF. "WHAT DID YOU DO WITH MY BOAT!" HE THINKS HE IS AT HIS HOME. RE-ORIENTED TO SURROUNDINGS BUT REFUSES TO ACCEPT RE-ORIENTATION. PT HAS NO IV ACCESS FOR ALMOST 24 HOURS HE WAS TO BE DISCHARGED YESTERDAY. RN WILL CHECK WITH MD FOR PO SUBSTITUTIONS FOR IV MEDS.
--- NOTE | 2019-02-21 07:38 | NUR ---
02/21/19 0645 RN SPOKE WITH COSMETOLOGY PROFESSOR HOSPITALIST ABOUT CHANGEING IV MEDS TO PO AND HE STATED TO HAVE DAY SHIFT MD DECIDE. RN NOTIFIED DAY SHIFT RN
[2019-02-21] MEDS ORDERED: CLOP75 PO (13:46)
[2019-02-21] MEDS ORDERED: CARBLEV25 SL (13:48)
[2019-02-21] MEDS ORDERED: CIPR500 PO (13:52)
[2019-02-21] MEDS ORDERED: Pyridium200 MG PO (13:52)
[2019-02-21] MEDS ORDERED: Culturelle1 CAP PO (13:52)
--- NOTE | 2019-02-21 16:44 | NUR ---
discharge PT UP TO CHAIR FOR BF. SOMEWHAT FORGETFUL, A/O X2, PLEASANT AFFECT. STATE HOPEFUL TO GO HOME TODAY. DR HARRIS IN TO SEE HIM & . PT @ THAT TIME DESCRIBE BURNING w URINATION. URETHRA EXAMINED, NO REDNESS OR LESIONS, DR STATE OK FOR D/C HOME w ORDER FOR ANTIBX & PYRIDIUM, PLACE D/C ORDERS. PT STATE NEED TO READY HOME PRIOR TO D/C, RETURN APPROX 1430 FOR TRANSPORTATION HOME. D/C INSTRUCT REVIEWED. SCRIPTS FAXED TO [facility]/REQUEST. PT ASSISTED TO DRESS/GATHER BELONGINGS. W/C ESCORT FROM HOSP & ASSIST INTO CAR PROVIDED. PT/ PLEASANT/APPRECIATIVE.
== END 2019-02-21 15:29 | disposition home health service (06) | DRG 64 ==
LOC: ER 22:55 → MEDS 02-16 03:09 → ICUE 02-16 03:09 → ERHOLD 02-16 03:09 → ICUE 02-16 04:39 → MEDS 02-16 11:15 → ENPENDDIS 02-20 11:00 → MEDS 02-21 15:29
PROVIDERS: Emergency Medicine; Hospitalist; Internal Medicine Gastroenterology; ADMIT Internal Medicine
DX: I63.532 Cerebral infarction due to unspecified occlusion or stenosis of left posterior cerebral artery (principal); A41.9 Sepsis, unspecified organism; R65.20 Severe sepsis without septic shock; B17.9 Acute viral hepatitis, unspecified; G93.49 Other encephalopathy; G20 Parkinson's disease; Z86.73 Personal history of transient ischemic attack (TIA), and cerebral infarction without residual deficits; Z95.0 Presence of cardiac pacemaker; Z87.891 Personal history of nicotine dependence; E78.5 Hyperlipidemia, unspecified; J44.9 Chronic obstructive pulmonary disease, unspecified; F03.90 Unspecified dementia, unspecified severity, without behavioral disturbance, psychotic disturbance, mood disturbance, and anxiety; I12.9 Hypertensive chronic kidney disease with stage 1 through stage 4 chronic kidney disease, or unspecified chronic kidney disease; N18.9 Chronic kidney disease, unspecified; Z85.46 Personal history of malignant neoplasm of prostate; G25.0 Essential tremor; E86.0 Dehydration; E87.6 Hypokalemia
CPT/HCPCS: 0099U; 36415; 51798; 70450; 71045; 74177; 74230; 76705; 78226; 80053; 83605; 83690; 84145; 84484; 85025; 85027; 85610; 87040; 92526; 92610; 92611; 93005; 93010; 93306; 94640; 94667; 94668; 94760; 96365; 96366; 96367; 96375; 96376; 97110; 97162; 97166; 97530; 99285-25; A9537; J0456; J0692; J0696; J1650; J2560; J3370; J3480; J7030; J7050; Q9967

== ENCOUNTER 2019-06-09 11:41 | Inpatient (IN) | payer MEDICARE ==
[~2019-06-09] VITALS: Ht 188 cm; Wt 92.5 kg
[~2019-06-09 11:41] MED LIST changes: +Aspirin EC81 MG PO; +CARBLEV25 SL; +CLOP75 PO; +Culturelle1 CAP PO; +Pyridium200 MG PO; +SINEMET 25-1001 EACH; +Sinemet 25-1001 EACH PO
[2019-06-09 12:09] LABS: BASOPHILS ABSOLUTE AUTO 0.04 K/mm3 (0.00-0.23); BASOPHILS PERCENT AUTO 1 % (0-2); EOSINOPHILS ABSOLUTE AUTO 0.48 K/mm3 (0.00-0.68); EOSINOPHILS PERCENT AUTO 7 % (0-6); Hematocrit 36.5 % (37.0-53.0); Hemoglobin 11.6 g/dL (13.5-17.5); IMMATURE GRAN ABSOLUTE AUTO 0.02 K/mm3 (0.00-0.10); IMMATURE GRAN PERCENT AUTO 0 % (0-1); LYMPHOCYTES ABSOLUTE AUTO 1.92 K/mm3 (0.84-5.20); LYMPHOCYTES PERCENT AUTO 26 % (21-46); MONOCYTES ABSOLUTE AUTO 0.55 K/mm3 (0.16-1.47); MONOCYTES PERCENT AUTO 7 % (4-13); Mean Corpuscular HGB 28.7 pg (26.0-34.0); Mean Corpuscular HGB Conc 31.8 g/dL (31.5-36.5); Mean Corpuscular Volume 90 fL (80-100); Mean Platelet Volume 10.4 fL (9.1-12.4); NEUTROPHILS ABSOLUTE AUTO 4.42 K/mm3 (1.96-9.15); NEUTROPHILS PERCENT AUTO 60 % (41-73); Platelet Count 213 K/mm3 (150-400); RDW Coefficient Variation 13.2 % (11.7-14.2); RDW Standard Deviation 43.6 fL (35.1-46.3); Red Blood Cell Count 4.04 M/mm3 (4.30-5.90); White Blood Cell Count 7.43 K/mm3 (4.00-11.30)
[2019-06-09 12:20] LABS: Alanine Aminotransfer (ALT/SGP 7 U/L (12-78); Albumin, Blood 3.1 g/dL (3.4-5.0); Alk Phos 58 U/L (50-136); Anion Gap 5 mmol/L (6-16); Aspartate Aminotrans (AST/SGOT 11 U/L (12-37); Bilirubin, Total 0.5 mg/dL (0.1-1.0); Blood Urea Nitrogen 17 mg/dL (8-24); CO2, Blood 29 mmol/L (21-32); Calcium, Blood 8.5 mg/dL (8.5-10.1); Chloride, Blood 109 mmol/L (98-108); Creatinine, Blood 0.89 mg/dL (0.60-1.20); Glomerular Filtration Rate >60 (60-); Glucose, Blood 107 mg/dL (70-99); Potassium, Blood 3.2 mmol/L (3.5-5.5); Sodium, Blood 143 mmol/L (136-145); Total Protein, Blood 6.1 g/dL (6.4-8.2)
[2019-06-09] MEDS ORDERED: PRIM250 PO (12:27)
[2019-06-09 12:35] LABS: Calcium, Ionized (POC) 1.13 mmol/L (1.10-1.46); Chloride (POC) 103 mmol/L (98-108); Creatinine (POC) 0.9 mg/dL (0.8-1.3); Glucose (ISTAT POC) 102 mg/dL (70-99); Hemoglobin (POC) 10.9 g/dL (13.5-17.5); Potassium (POC) 2.9 mmol/L (3.5-5.5); Sodium (POC) 141 mmol/L (135-148); Total CO2 (POC) 28 mmol/L (21-32)
[2019-06-09 13:17] LABS: International Normalized Ratio 1.03
[2019-06-10 04:49] LABS: Hematocrit 32.1 % (37.0-53.0); Mean Corpuscular HGB 28.3 pg (26.0-34.0); Mean Corpuscular HGB Conc 31.2 g/dL (31.5-36.5); Mean Corpuscular Volume 91 fL (80-100); Mean Platelet Volume 10.6 fL (9.1-12.4); Platelet Count 193 K/mm3 (150-400); RDW Coefficient Variation 13.4 % (11.7-14.2); RDW Standard Deviation 44.3 fL (35.1-46.3); Red Blood Cell Count 3.53 M/mm3 (4.30-5.90); White Blood Cell Count 5.93 K/mm3 (4.00-11.30)
[2019-06-10 05:14] LABS: Alanine Aminotransfer (ALT/SGP 6 U/L (12-78); Albumin, Blood 2.8 g/dL (3.4-5.0); Alk Phos 52 U/L (50-136); Anion Gap 6 mmol/L (6-16); Aspartate Aminotrans (AST/SGOT 10 U/L (12-37); Bilirubin, Total 0.7 mg/dL (0.1-1.0); Blood Urea Nitrogen 13 mg/dL (8-24); Bun/Creatinine Ratio 16.6 (12.0-20.0); CO2, Blood 27 mmol/L (21-32); Calcium, Blood 7.6 mg/dL (8.5-10.1); Chloride, Blood 112 mmol/L (98-108); Creatinine, Blood 0.78 mg/dL (0.60-1.20); Globulin, Blood 2.7 g/dL (2.2-4.0); Glomerular Filtration Rate >60 (60-); Glucose, Blood 79 mg/dL (70-99); Potassium, Blood 3.5 mmol/L (3.5-5.5); Sodium, Blood 145 mmol/L (136-145); Total Protein, Blood 5.5 g/dL (6.4-8.2)
--- NOTE | 2019-06-10 05:29 | NUR ---
SHIFT SUMMARY: PATIENT HAS INTERMITTENT AND FREQUENT CONFUSED AND FORGETFULL MOMENTS, PATIENT EASILY REORIENTED. PATIENT HAS A HISTORY OF CDIFF FROM AUGUST OF 2018, MD NOTIFIED, ORDERS RECIEVED, SAMPLE SENT. PATIENT LAB TEST IS NEGATIVE FOR CDIFF. PATIENT TAKEN OFF OF ISOLATION. PATIENT HAD X2 LARGE BLOODY BM'S, MANY LARGE CLOTS NOTED. LAST 6 HOURS OF SHIFT NO BOWEL MOVEMENT NOTED, [facility] LAB TESTS Q4, STILL STABLE. PATIENT NPO SINCE 0000, POSSIBLE EGD IN AM. SKIN C/D/I, BARRIER CREAM APPLIED TO PREVENT SKIN BREAKDOWN, PATIENT TURNED EVERY 2 HOURS WITH INCONTINENCE CHECKS. CALL LIGHT WITHIN REACH AND USED APPROPRIATLY, BED LOW AND LOCKED WITH EXIT ALARM ON.
--- NOTE | 2019-06-10 07:42 | NUR ---
AM NOTE... ASSUMED CARE OF PT APROX 0700. PT IS A&Ox4, SLOW TO RESPOND AND HAS HX OF PARKINSONS. PT WAS ADMITTED FOR GIB AND IS HAVING EGD THIS AM. PT HAS BEEN NPO FOR THIS PROCEDURE. PT'S VS STABLE. NO EDEMA NOTED ON ASSESSMENT. L/S CLEAR IN THE UPPER AND COARSE IN THE LOWER BASES, PT IS ON RA. BT PRESENT AND HYPOACTIVE, ABD IS SOFT AND ONLY TENDER TO PALP IN THE RLQ. CALL LIGHT IN REACH WILL CONTINUE TO MONITOR.
--- NOTE | 2019-06-10 08:04 | NUR ---
PT TRANSFERRED TO DS VIA BED. VSS. PT AND PT'S PCU NURSE CONFIRM NPO STATUS. LUNGS CTA. PT WITH NO C/O PAIN OR NAUSEA.
--- NOTE | 2019-06-10 08:26 | NUR ---
06/10/19 0826 ANN JAY History, Chart, Medications and Allergies reviewed before start of procedure.3-LEAD EKG REVIEWED WITH PHYSICIAN PRIOR TO START OF PROCEDURE.O2 VIA N/C INTACT THROUGHOUT SEDATION/PROCEDURE. MONITOR INTACT WITH CONTINUOUS PULSE OXIMETRY AND INTERMITTENT BP.PATIENT DETERMINED TO BE ASA APPROPRIATE FOR PROPOFOL SEDATION PRIOR TO START OF PROCEDURE BY .
--- NOTE | 2019-06-10 09:26 | NUR ---
Pt returned to pcu 13 following EGD; he is asking for food. Explained that he is on clear liquid diet for the time being, during recovery and until able to tolerate more substantial food. He is eating a popscicle at this time. Blood pressure was elevated, monitoring ongoing.
--- NOTE | 2019-06-10 09:59 | NUR ---
Tolerating clear liquids quite well. He has remained wide awake since return to PCU 13. Drinking apple juice, water, and taking pills as scheduled without any complaints of nausea, pain, or difficulty swallowing.
--- NOTE | 2019-06-10 17:07 | NUR ---
SHIFT SUMMARY.... NO ACUTE NEGATIVE CHANGES NOTED THIS SHIFT. PT HAS HAD 2 LOOSE STOOLS THAT WERE DARK RED BLOOD W/CLOTS, ONE LARGE AND ONE SMALL. PT DENIES ABD PAIN THIS SHIFT. PT WAS HYPERTENSIVE, PROVIDER WAS CALLED AND ORDERS OBTAINED FOR PRN HTN MEDICATIONS. PT WAS GIVEN 1 DOSE AND RESPONDED WELL, VS HAVE BEEN STABLE SINCE. PT HAS BEEN INCONT OF BOWEL AND BLADDER THIS SHIFT. PT HAS BEEN ABLE TO SWALLOW PILLS WHOLE WITH WATER. PT IS ON CLEAR LIQUID DIET AND WILL HAVE COLONOSCOPY POSSIBLY TOMORROW OR THE NEXT DAY. PT IS AGREEABLE WITH THIS PLAN OF CARE. PT'S DAUGHTER/POA WAS CALLED AND UPDATED ON PT'S CONDITION AND PLAN OF CARE, SHE IS ALSO AGREE ABLE. CALL LIGHT IN REACH, WILL CONTINUE TO MONITOR UNTIL REPORT IS GIVEN TO ONCOMING RN.
--- NOTE | 2019-06-10 22:24 | NUR ---
PATIENT EXPERIENCING NAUSEA AND A SMALL AMOUNT OF EMESIS, MED GIVEN SEE EMAR.
[2019-06-11 04:30] LABS: Hematocrit 31.1 % (37.0-53.0)
--- NOTE | 2019-06-11 04:43 | NUR ---
SHIFT SUMMARY: -PATIENT HAD SMALL SMEARS OF BLOOD IN ATTENDS THIS SHIFT. -INTERMITTENT CONFUSION -SYSTOLIC BLOOD PRESSURES STILL AVERAGING BETWEEN 140 AND 170, ALL OTHER VSS. -PATIENT ANXIOUS ABOUT COLONOSCOPY -BED LOW AND LOCKED WITH EXIT ALARM ON, CALL LIGHT WITHIN REACH
--- NOTE | 2019-06-11 08:34 | NUR ---
AM NOTE... ASSUMED CARE OF PT APROX 0700. PT IS A&Ox4 AND ADMITTED FOR GIB. PT CURRENTLY DENIES ABD PAIN AND ABD IS NONTENDER TO PALP. PT IS HYPERTENSIVE, OTHER VS STABLE. CALL LIGHT IN REACH WILL CONTINUE TO MONITOR.
[2019-06-11 13:24] LABS: Hematocrit 28.1 % (37.0-53.0)
--- NOTE | 2019-06-11 18:24 | NUR ---
SHIFT SUMMARY. NO ACUTE NEGATIVE CHANGES NOTED THIS SHIFT. PT DENIES ABD PAIN. PT HAS NOT HAD ANY BM THIS SHIFT. PT IS STARTING COLON PREP FOR COLONOSCOPY TOMORROW 06/12. PT HAS BEEN HYPERTENSIVE, MEDICATED PER EMAR WITH GOOD RESULTS. PT'S OTHER VS HAVE BEEN STABLE. PT IS ON CLEAR LIQUID DIET AND NPO AFTER MIDNIGHT TONIGHT. CALL LIGHT IN REACH WILL CONTINUE TO MONITOR UNTIL REPORT IS GIVEN TO ONCOMING RN.
--- NOTE | 2019-06-11 19:45 | NUR ---
RECEIVED REPORT FROM SAMM MENESES. ASSUMED CARE OF PT. IN NO ACUTE DISTRESS AT THIS TIME. RESTING COMFORTABLY. DENIES ANY NEEDS AT THIS TIME. CALL LIGHT AND POSSESSIONS IN REACH, WILL CONTINUE TO MONITOR.
[2019-06-12 00:59] LABS: Hematocrit 30.9 % (37.0-53.0); Hemoglobin 10.1 g/dL (13.5-17.5)
--- NOTE | 2019-06-12 07:45 | NUR ---
REPORTED OFF TO SAMM BARROS. PT RESTING IN BED COMFORTABLY IN NO ACUTE DISTRESS. WAS MONITORED EVERY 1-2 HOURS WITH NEEDS MET. DENIES ANY NEEDS AT THIS TIME. CALL LIGHT AND POSSESSIONS IN REACH, BED IN LOW AND LOCKED POSITION.
--- NOTE | 2019-06-12 13:42 | NUR ---
PT TAKEN TO DAY SURGERY PT DRANK FULL BOTTLE OF MAG CITRATE THIS AM THEN WAS NPO AT 1230, THE PT DID HANE A LITTLE PASTY STOOL STILL AT THE TIME OF TRANSFER, THE PT APPEARED OT BE BREATHING EASILY ON RA
--- NOTE | 2019-06-12 14:07 | NUR ---
PT HAS RHONCII IN R LOBES WITH A RA SPO2 AT 96%. WILL NITIFY SERVER ASSISTANT AT TIME OF TRANSFER. PT HAS PARKINSONS WITH ESSENTIAL TREMMOR, COMPARED EKG STRIP WITH PRIOR STRIPS AND EKG. PT DENIES CP OR PRESSURE. CUDDLED PT IN WARM BLANKETS AND HEATER DUE TO C/O OF " I'M FREEZING". WILL MONITOR FOR INCREASING TEMPORAL TEMPERATUR.
--- NOTE | 2019-06-12 17:55 | NUR ---
PT IS A/OX3, SLOW TO RESOND AT TIMES, FORGETFULL AT TIMES, PLEASANT AND COOPERATIVE, THE PT APPEARS TO BE BREATHING EASILY AT THIS TIME ON RA, THE PT WAS TAKENN TO DAY SURGERY FOR A COLONOSCOPY TODAY TOLERATED WELL, NO BLOODY STOOLS SEEN SO FAR THIS SHIFT, SURGURY CONSULT WAS CALLED TO DR. MILLER OFFICE, THE PT WAS AT THE BEDSIDE T/O THE DAY, CALL LIGHT IN REACH, BED ALARM ON
--- NOTE | 2019-06-13 04:43 | NUR ---
SHIFT SUMMARY PT ALERT AND ORIENTED TO SELF; INTERMITTENLY CONFUSED; O2 SATS >93 ON RA; PT DENIES CHEST PAIN; PT INCONTINENT; ATTENDS IN PLACE; PT SLEPT A SHORT TIME EARLY AM; DENIES NEEDS; CALL LIGHT IN PLACE; BED IN LOWEST POSITION; WILL MONITOR CLOSELY UNTIL HAND OFF TO DAY SHIFT RN.
--- NOTE | 2019-06-13 10:00 | NUR ---
PT ARRIVED TO ROOM 343 FROM PCU BY BED AT APPROX 0930. SETTLED IN TO BED AND ORIENTED TO ROOM. REQUESTING ICE WATER AND TV TO BE PUT ON [employer]. KEPT ASKING FOR VOLUME TO BE TURNED UP AND WHEN STAFF EXPRESSED CONCERN ABOUT VOLUME BECOMING TOO LOUD FOR PT IN SURROUNDING ROOMS PT REPORTED HE HAD THE RIGHT TO HAVE IT LOUD HE WANTED PER [employer] LAW.
--- NOTE | 2019-06-13 14:31 | NUR ---
Pt visit this afternoon. Pt resting in bed and denies pain at this time. Pt is A&Ox4. Pt reports his wishes to go home if surgery will not happen until next week. Assessed Pt's level of understanding for the need for surgery. Pt states to remove the cancer. Pt and family report Pt needs considerable assistance with transfers and does not ambulate due to significant weakness and unbalance. Pt also needs assistance with dressing, bathing, and experiences incontinence. Discussed surgery with Pt and the suspicion of mass being cancer and possible treatment options. Pt is agreeable with surgery and reports if other treatments are available such as chemo or radiation he is willing to pursue these options as well. Family inquires about different cancer treatment options with this RN deferring questions to hospitalist, surgeon, and if needed oncologist. Spoke with family outside of Pt's room and listened to their concerns. Pt's Malissa and daughter Charu report concerns of ability to care for Pt with his current condition and increased weakness. Instructed concerns will be relayed to Pt's c4 planner. No other concerns reported at this time. Spoke with Health Care Recruiter Kita and relayed family concerns. Palliative Care will remain available.
--- NOTE | 2019-06-13 18:57 | NUR ---
SHIFT SUMMARY DR. IRENE IN TO SEE PT THIS MORNING AND THEN PT DEMANDED DR. IRENE TO COME BACK AND DISCUSS THE SURGERY FURTHER. PLAN MADE FOR SURGERY TO BE NEXT TUESDAY. DR. IRENE EXPRESSLY STATED HE DOESN'T WANT PT TAKING PLAVIX FOR THE NEXT WEEK AND TO EAT A HIGH PROTEIN DIET WHEN HE GOES HOME. DR. IGLESIAS ORDERED PT/OT TO VERIFY SAFETY AT HOME AND THEY RECOMMENDED HOME HEALTH. PLANS FOR PT TO DISCHARGE HOME. AND FRIEND HAD EXPRESSED CONCERN ORIGINALLY ABOUT PT GOING HOME AND PT NOT BEING SAFE. PT HAD NO FURTHER COMPLAINTS TODAY.
--- NOTE | 2019-06-14 05:42 | NUR ---
CHIMNEY REPAIRER SUMMARY Benny slept all night without any complaints. No pain or discomfort, pleasant and cooperative. VSS
--- NOTE | 2019-06-14 11:25 | NUR ---
PT. HOSPITALIZED AND DUE IN [facility] FOR DEVICE INTERROGATION. NORMAL FUNCTIONING DUAL CHAMBER PACEMAKER. NORMAL ATRIAL AND VENTRICULAR SENSING AND CAPTURE. P WAVE 5.1mV. R WAVE 10.9mV. ATRIAL CAPTURE THESHOLD 1.1V@.4ms. VENTRICULAR CAPTURE THRESHOLD 1.5V@.7ms. HISTOGRAMS SHOW Ap 52% Wood Tile Installer <1%. NUMBER OF AT/AF EPISODES:1. PROGRAMMED VENTRICULAR AMPLITUDE TO 3.0V.
[2019-06-14] MEDS ORDERED: PANT40 PO (11:47)
[2019-06-14] MEDS ORDERED: LEVO750 PO (12:07)
--- NOTE | 2019-06-14 16:15 | NUR ---
PT DISCHARGED VIA WITH [facility] TRANSPORT TO HOME. PERSONAL BELONGINGS WITH PT. REVIEWED DC INSTRUCTIONS AND MEDICATIONS WITH PT- PT VERB UNDERSTANING.
--- NOTE | 2019-06-19 13:53 | NUR ---
06/19/19 1353 CyrusGraham PATIENT DETERMINED TO BE ASA APPROPRIATE FOR PROPOFOL SEDATION PRIOR TO START OF PROCEDURE BY 3-LEAD EKG REVIEWED WITH PHYSICIAN PRIOR TO START OF PROCEDURE.Patient to ENDO 1History, Chart, Medications and Allergies reviewed before start of procedure.MONITOR INTACT WITH CONTINUOUS PULSE OXIMETRY AND INTERMITTENT BP.O2 VIA N/C INTACT THROUGHOUT SEDATION/PROCEDURE.
== END 2019-06-14 16:00 | disposition home health service (06) | DRG 374 ==
LOC: ER 11:41 → PCU 13:13 → MEDS 06-13 08:33 → ENPENDDIS 06-14 14:04 → MEDS 06-14 16:00
PROVIDERS: Emergency Medicine; Family Medicine; Internal Medicine Gastroenterology; Nurse Practitioner Acute Care; ADMIT Hospitalist
PROC: 0DJ08ZZ Inspection of Upper Intestinal Tract, Via Natural or Artificial Opening Endoscopic (ICD-10-PCS; principal; 2019-06-10 08:00)
PROC: 0DDK8ZX Extraction of Ascending Colon, Via Natural or Artificial Opening Endoscopic, Diagnostic (ICD-10-PCS; 2019-06-12 15:30)
DX: C18.2 Malignant neoplasm of ascending colon (principal); J18.9 Pneumonia, unspecified organism; D62 Acute posthemorrhagic anemia; G20 Parkinson's disease; I10 Essential (primary) hypertension; E78.5 Hyperlipidemia, unspecified; Z86.73 Personal history of transient ischemic attack (TIA), and cerebral infarction without residual deficits; J44.9 Chronic obstructive pulmonary disease, unspecified; Z85.46 Personal history of malignant neoplasm of prostate; F17.210 Nicotine dependence, cigarettes, uncomplicated; E87.6 Hypokalemia; Z95.0 Presence of cardiac pacemaker; Z89.429 Acquired absence of other toe(s), unspecified side; K22.2 Esophageal obstruction; K44.9 Diaphragmatic hernia without obstruction or gangrene; K29.80 Duodenitis without bleeding; N40.0 Benign prostatic hyperplasia without lower urinary tract symptoms; K63.5 Polyp of colon; K57.90 Diverticulosis of intestine, part unspecified, without perforation or abscess without bleeding; K64.8 Other hemorrhoids
CPT/HCPCS: 36415; 71260; 74177; 80047; 80053; 82272; 82378; 83690; 83735; 85014; 85018; 85025; 85027; 85610; 86850; 86900; 86901; 87493; 88305; 93005; 93010; 93280; 96365; 96366; 96368; 97110; 97162; 97166; 97530; 97535; 99285-25; C9113; J0360; J2405; J2704; J3480; J7030; J7040; J7120; Q9967

== ENCOUNTER 2019-06-22 07:49 | Inpatient (IN) | payer MEDICARE ==
[~2019-06-22] VITALS: Ht 188 cm; Wt 89.5 kg
[~2019-06-22 07:49] MED LIST changes: +ASPI81CH PO; +LEVO750 PO; +Norco 5-325 Ta1 EACH PO; +PANT40 PO
--- NOTE | 2019-06-22 09:53 | NUR ---
History, Chart, Medications and Allergies reviewed before start of procedure. Patient confirms NPO status and agrees with scheduled surgery. Lungs clear T/O to Auscultation. Patient reports completing Chlorhexadine shower X2 prior to admission to hospital.
--- NOTE | 2019-06-22 13:38 | NUR ---
pt arrived to room 232 from pacu s/p colectomy pt has midline with paco with small amt of sang drainage pt has dim bs with coars cough pt reports pain 10/10 family at bedside
--- NOTE | 2019-06-22 16:44 | NUR ---
PT REQ PAIN MEDS 0.2 MG DILAUDID GIVEN
--- NOTE | 2019-06-22 17:35 | NUR ---
PT SITTING UP IN BED EATING CL DIET EARLIER HAD POPSICLE WITH HIS MEDS PT STATED HE ONLY WANTS TO HAVE THE BROTH
[2019-06-23 04:44] LABS: BASOPHILS ABSOLUTE AUTO 0.03 K/mm3 (0.00-0.23); BASOPHILS PERCENT AUTO 0 % (0-2); EOSINOPHILS ABSOLUTE AUTO 0.06 K/mm3 (0.00-0.68); EOSINOPHILS PERCENT AUTO 1 % (0-6); Hemoglobin 8.8 g/dL (13.5-17.5); IMMATURE GRAN ABSOLUTE AUTO 0.03 K/mm3 (0.00-0.10); IMMATURE GRAN PERCENT AUTO 0 % (0-1); LYMPHOCYTES ABSOLUTE AUTO 1.01 K/mm3 (0.84-5.20); LYMPHOCYTES PERCENT AUTO 11 % (21-46); MONOCYTES ABSOLUTE AUTO 0.63 K/mm3 (0.16-1.47); MONOCYTES PERCENT AUTO 7 % (4-13); Mean Corpuscular HGB 27.3 pg (26.0-34.0); Mean Corpuscular HGB Conc 30.3 g/dL (31.5-36.5); Mean Corpuscular Volume 90 fL (80-100); Mean Platelet Volume 9.5 fL (9.1-12.4); NEUTROPHILS ABSOLUTE AUTO 7.74 K/mm3 (1.96-9.15); NEUTROPHILS PERCENT AUTO 82 % (41-73); Platelet Count 282 K/mm3 (150-400); RDW Coefficient Variation 13.8 % (11.7-14.2); Red Blood Cell Count 3.22 M/mm3 (4.30-5.90)
[2019-06-23 05:04] LABS: Anion Gap 4 mmol/L (6-16); Blood Urea Nitrogen 18 mg/dL (8-24); Bun/Creatinine Ratio 18.2 (12.0-20.0); CO2, Blood 29 mmol/L (21-32); Calcium, Blood 7.8 mg/dL (8.5-10.1); Chloride, Blood 109 mmol/L (98-108); Creatinine, Blood 0.99 mg/dL (0.60-1.20); Glomerular Filtration Rate >60 (60-); Glucose, Blood 104 mg/dL (70-99); Potassium, Blood 3.7 mmol/L (3.5-5.5); Sodium, Blood 142 mmol/L (136-145)
--- NOTE | 2019-06-23 06:26 | NUR ---
SHIFT SUMMARY: SHAHID RESTED INTERMITTENTLY DURING THE BEGINNIG OF THE SHIFT, HAS BEEN AWAKE SINCE APPROX 0415. HE IS TOLERATING PO INTAKE WELL. O2 AT 1 LPM VIA NC, MAINTAINING HIS SATURATIONS ABOVE 91%. DANIEL OVER MIDLINE INCISION PATENT, NO OSTOMY. SCDs IN PLACE. ORDAZ DRAINING YELLOW URINE. VSS. NO ACUTE CHANGES OVERNIGHT. SHAHID REPORTS ADEQUATE PAIN CONTROL WITH NORCO 5/325 MG. HE WAS ENCOURAGED TO DEEP BREATHE AND COUGH, FLUTTER VALVE USE EDUCATED AND ENCOURAGED. HE IS ALERT AND ORIENTED, DIDN'T KNOW THE FULL DATE BUT KNEW THE YEAR. HE IS LYING IN BED WITH HIS CALL LIGHT IN REACH. HE HAS CALLED INFREQUENTLY, BUT APPROPRIATELY WHEN HE DOES CALL. WILL REPORT TO ONCOMING RN.
--- NOTE | 2019-06-23 14:30 | NUR ---
THERAPY: THERAPY IN ROOM TO WORK WITH PT TO MOVE FROM CHAIR BACK TO BED. PT HAS BEEN IN THE CHAIR SEVERAL HOURS. 1 ASSIST WITH WALKER. CONT TO ENCOURAGE SPIROMETRY. WEANED TO ROOM AIR AT THIS TIME. CONT BIOX IN PLACE.
--- NOTE | 2019-06-23 18:11 | NUR ---
PT VSS THIS SHIFT. PT ALERT BUT SOMETIMES FORGETFUL. PT HAS MOIST WEAK COUGH. ENCOURAGING SPIROMETRY AND SPLINT COUGHING. ATTEMPTED TO WEAN TO RA THIS AFTERNOON, HOWEVER PT WAS PLACED BACK ON 1LNC. CONT BIOX IN PLACE. TAKING SMALL AMTS OF CLEAR LIQUIDS. NO COMPLAINTS OF NAUSEA. HYPO BT'S. NO FLATUS YET. ORDAZ WITH ADEQUATE OUTPUT, TO BE DC'D TOMORROW AM. IV CONT TO INFUSE AT ORDERED RATE. DANIEL DRESSING WITH OLD DRY DRAINAGE. PAS TO BLE. PT RATES PAIN HIGH BUT ABLE TO SLEEP AFTER MEDICATED PRN. PT SAT IN CHAIR FOR MOST OF THE MORNING AND AFTERNOON AND WORKED WITH THERAPY WELL. FAMILY AT BEDSIDE AND ATTENTIVE.
[2019-06-24 04:27] LABS: BASOPHILS ABSOLUTE AUTO 0.05 K/mm3 (0.00-0.23); BASOPHILS PERCENT AUTO 1 % (0-2); EOSINOPHILS ABSOLUTE AUTO 0.56 K/mm3 (0.00-0.68); EOSINOPHILS PERCENT AUTO 6 % (0-6); Hematocrit 29.9 % (37.0-53.0); Hemoglobin 9.1 g/dL (13.5-17.5); IMMATURE GRAN ABSOLUTE AUTO 0.02 K/mm3 (0.00-0.10); IMMATURE GRAN PERCENT AUTO 0 % (0-1); LYMPHOCYTES ABSOLUTE AUTO 0.98 K/mm3 (0.84-5.20); LYMPHOCYTES PERCENT AUTO 10 % (21-46); MONOCYTES ABSOLUTE AUTO 0.49 K/mm3 (0.16-1.47); MONOCYTES PERCENT AUTO 5 % (4-13); Mean Corpuscular HGB 27.7 pg (26.0-34.0); Mean Corpuscular HGB Conc 30.4 g/dL (31.5-36.5); Mean Corpuscular Volume 91 fL (80-100); Mean Platelet Volume 9.6 fL (9.1-12.4); NEUTROPHILS ABSOLUTE AUTO 7.47 K/mm3 (1.96-9.15); NEUTROPHILS PERCENT AUTO 78 % (41-73); Platelet Count 294 K/mm3 (150-400); RDW Coefficient Variation 13.9 % (11.7-14.2); RDW Standard Deviation 46.2 fL (35.1-46.3); Red Blood Cell Count 3.29 M/mm3 (4.30-5.90); White Blood Cell Count 9.57 K/mm3 (4.00-11.30)
[2019-06-24 04:43] LABS: Anion Gap 5 mmol/L (6-16); Blood Urea Nitrogen 11 mg/dL (8-24); Bun/Creatinine Ratio 12.8 (12.0-20.0); CO2, Blood 28 mmol/L (21-32); Calcium, Blood 8.2 mg/dL (8.5-10.1); Chloride, Blood 109 mmol/L (98-108); Creatinine, Blood 0.86 mg/dL (0.60-1.20); Glomerular Filtration Rate >60 (60-); Glucose, Blood 85 mg/dL (70-99); Magnesium, Blood 1.7 mg/dL (1.6-2.4); Phosphorus, Blood 2.4 mg/dL (2.5-4.9); Potassium, Blood 3.5 mmol/L (3.5-5.5); Sodium, Blood 142 mmol/L (136-145)
--- NOTE | 2019-06-24 04:49 | NUR ---
SHIFT SUMMARY: SHAHID RESTED INTERMITTENTLY DURING THE NIGHT, WAKING AT APPROX 0130 FOR OVER AN HOUR. HE DID REST COMFORTABLY AFTER TAKING THE NORCO 5/325 MG. ORDAZ PATENT, DRAINING CLEAR, YELLOW URINE. ORDAZ WILL BE PULLED BEFORE SHIFT CHANGE PER ORDER. HE DID HAVE AN EPISODE OF CONFUSION DURING THE NIGHT WHEN HE STATED THAT HE DID NOT KNOW WHERE HE WAS. HE REORIENTED EASILY AND HAS NOT DEMONSTRATED ANY FURTHER CONFUSION. HE DENIES ANY HEADACHE, NUMBNESS OR TINGLING. HE IS ABLE TO VISUALLY TRACK AND MOVES ALL FOUR EXTREMITIES. HE HAS TAKEN SIPS OF WATER THROUGH THE NIGHT BUT DENIED OTHER PO INTAKE. HE HAS USED HIS CALL LIGHT INFREQUENTLY THIS SHIFT. HE IS LYING IN BED WITH HIS CALL LIGHT IN REACH. WILL REPORT TO DAY SHIFT RN.
--- NOTE | 2019-06-24 16:43 | NUR ---
SHIFT SUMMARY PT HAS BEEN PLEASANTLY CONFUSED ALL SHIFT. REORIENTING TO PLACE, PROCEDURE, PERSON, AND TIME PRN. MEDICATING WITH 1 NORCO FOR PAIN. MIDLINE ABD INCISION REMAINS UNCHANGED AND DANIEL DRESSING STILL COMPRESSED + ABD BINDER IN PLACE. PT DENIES PASSING GAS. SLOWLY EVELINA CLEAR LIQS. UP IN CHAIR MOST OF SHIFT. INCONTINENT WITH ATTENDS IN PLACE BUT DOES OCCASSIONALLY USE THE URINAL. IS CURRENTLY AT BEDSIDE. BED ALARM IN PLACE FOR SAFETY. CALL LIGHT WITHIN REACH.
[2019-06-25 04:23] LABS: BASOPHILS ABSOLUTE AUTO 0.05 K/mm3 (0.00-0.23); BASOPHILS PERCENT AUTO 1 % (0-2); EOSINOPHILS ABSOLUTE AUTO 0.34 K/mm3 (0.00-0.68); EOSINOPHILS PERCENT AUTO 4 % (0-6); Hematocrit 32.8 % (37.0-53.0); IMMATURE GRAN ABSOLUTE AUTO 0.03 K/mm3 (0.00-0.10); IMMATURE GRAN PERCENT AUTO 0 % (0-1); LYMPHOCYTES ABSOLUTE AUTO 0.83 K/mm3 (0.84-5.20); LYMPHOCYTES PERCENT AUTO 10 % (21-46); MONOCYTES ABSOLUTE AUTO 0.41 K/mm3 (0.16-1.47); MONOCYTES PERCENT AUTO 5 % (4-13); Mean Corpuscular HGB 27.1 pg (26.0-34.0); Mean Corpuscular HGB Conc 30.5 g/dL (31.5-36.5); Mean Corpuscular Volume 89 fL (80-100); Mean Platelet Volume 9.6 fL (9.1-12.4); NEUTROPHILS ABSOLUTE AUTO 6.99 K/mm3 (1.96-9.15); NEUTROPHILS PERCENT AUTO 81 % (41-73); Platelet Count 324 K/mm3 (150-400); RDW Coefficient Variation 13.6 % (11.7-14.2); RDW Standard Deviation 44.5 fL (35.1-46.3); Red Blood Cell Count 3.69 M/mm3 (4.30-5.90); White Blood Cell Count 8.65 K/mm3 (4.00-11.30)
[2019-06-25 04:46] LABS: Anion Gap 6 mmol/L (6-16); Blood Urea Nitrogen 11 mg/dL (8-24); Bun/Creatinine Ratio 12.5 (12.0-20.0); CO2, Blood 28 mmol/L (21-32); Calcium, Blood 8.2 mg/dL (8.5-10.1); Chloride, Blood 107 mmol/L (98-108); Creatinine, Blood 0.88 mg/dL (0.60-1.20); Glomerular Filtration Rate >60 (60-); Glucose, Blood 85 mg/dL (70-99); Magnesium, Blood 1.8 mg/dL (1.6-2.4); Phosphorus, Blood 3.5 mg/dL (2.5-4.9); Potassium, Blood 3.6 mmol/L (3.5-5.5); Sodium, Blood 141 mmol/L (136-145)
--- NOTE | 2019-06-25 06:27 | NUR ---
SHIFT SUMMARY: SHAHID RESTED INTERMITTENTLY DURING THE NIGHT. HE HAD A COUPLE OF EPISODES OF CONFUSION, BUT REORIENTED EASILY. HE IS INCONTINENT, ATTENDS IN PLACE. HE IS TOLERATING PO INTAKE WELL, BUT DID HAVE ONE EPISODE OF EMESIS WHICH CONTAINED A SIGNIFICANT AMOUNT OF SPUTUM. RESPIRATORY CARE WAS DISCUSSED AND ENCOURAGED. FLUTTER VALVE AND IS AT BEDSIDE. HE IS ABLE TO MAKE HIS NEEDS KNOWN, BUT SOMETIMES FORGETS TO USE THE CALL LIGHT. BED ALARM ON FOR SAFETY D/T WANTING TO GET UP WHEN HE IS HAVING EPISODES OF CONFUSION. HE HAS BEEN PLEASANT AND COOPERATIVE. MEPILEX PLACED ON HIS COCCYX/RIGHT GLUTEAL FOLD FOR BLANCHABLE REDNESS. WILL REPORT TO DAY SHIFT RN.
--- NOTE | 2019-06-25 19:30 | NUR ---
SUMMARY: NO ACUTE CHANGE TODAY. PT CONFUSED, BUT ALERT AND ABLE TO FOLLOW COMMANDS. DECONDITIONED. UP WITH 2 MAX ASSIST. SURGICAL SITE WNL. PT REFUSED PAIN THE MAJORITY OF THE DAY AND SLEPT ON AND OFF. AT ABOUT 1700 PT BECAME NAUSATED AFTER SWALLOWING PILLS. SMALL AMT OF EMESIS AND WHITE MUCUS FROM MOUTH. PT HAS WEAK COUGH AND SEEMED TO NOT SWALLOW WELL TONIGHT WHEN TAKING PILLS. SUCTION SET UP IN ROOM AND DR. IRENE NOTIFIED. SPEECH EVAL ORDERED AND PT NPO FOR TONIGHT, UNTIL MORNING EVAL. PT 02 SATS 92% ON RA CURRENTLY AND LUNGS ARE CLEAR. REPORT GIVEN TO FARIBA QUIJANO.
--- NOTE | 2019-06-26 06:38 | NUR ---
POD 4 S/P HEMICOLECTOMY. PT VSS, SATS >90% IN 1LNC, DROP TO 88% ON RA. DRESSING CDI. PT NPO PER ORDERS PENDING SWALLOW EVAL; IVF CONT PER ORDERS. PT REP NO FLATUS, NO C/O N/V. PT INCONTINENT OF URINE, ATTENDS CHANGED PRN. PT FORGETFUL AT TIMES, BED ALARM ON. WILL CONT TO MONITOR UNTIL REP GIVEN TO ONCOMING RN.
--- NOTE | 2019-06-26 18:45 | NUR ---
SUMMARY NO ACUTE CHANGES T/O SHIFT. PT HAD SWALLOW EVAL. FULL LIQUIDS AND NECTAR THICK FLUIDS. PILLS WHOLE ONE AT A TIME W/APPLESAUCE. APPEARED TO TOLERATE WELL. SAT UP IN CHAIR FOR FIRST HALF OF SHIFT. WORKED W/THERAPY. CALL LIGHT IN REACH.
--- NOTE | 2019-06-27 07:45 | NUR ---
PT AWAKE STATED THAT HE WOULD LIKE A PAIN MED WITH HIS MEDS THIS AM OTHERWISE DOING OK
--- NOTE | 2019-06-27 07:59 | NUR ---
POD 5 S/P HEMICOLECTOMY. PT VSS T/O NIGHT; SATS >90% ON 1LNC. TCDB EXERCISES REINFORCED. PT DENIED PAIN/N/V. PT EVELINA NECTAR THICK PO, ASPIRATION PRECAUTIONS MAINTAINED. PT DID HAVE LARGE BM THIS SHIFT. PT INCONTINENT OF URINE, ATTENDS CHANGED PRN. PT FORGETFUL AT TIMES, DOES USE CALL LIGHT AT TIMES. BED ALARM ON FOR SAFETY. REPORT GIVEN TO DAY RN.
--- NOTE | 2019-06-27 08:26 | NUR ---
PT SITTING UP ON EDGE OF THE BED EATING BREAKFAST MEDS GIVEN SCHED
--- NOTE | 2019-06-27 15:03 | NUR ---
dr yanez by to see
[2019-06-27] MEDS ORDERED: OXYC5 PO (15:44)
--- NOTE | 2019-06-27 15:45 | NUR ---
PT'S AT BEDSIDE GOING OVER DISCHARGE WITH HER ALSO TALKED WITH PT'S DAUGHTER REQ I CALL [facility] FOR TRANSPORT
--- NOTE | 2019-06-27 16:15 | NUR ---
PT'S CAREGIVER STEVEN CAME IN UPSET HAD ME COME IN THE HALLWAY TO GIVE HER AN UPDATE ON PT AND WHY HE IS BEING DISCHARGE THEN SHE WANTED ME TO HOLD OFF ON HIS DISCHARGE UNTILL SHE TALKS WITH THE FAMILY STATED SHE IS NOT READY FOR HIM TO COME HOME
--- NOTE | 2019-06-27 17:00 | NUR ---
CALLED DR IRENE CANCELED DISCHARGE SS CONSULT PLACED FOR SNF PLACEMENT PT'S CARGEGIVER FILLS LIKE SHE CANNOT TAKE CARE OF HIM WILL NOTIFY LATOYA IN AM
--- NOTE | 2019-06-27 18:40 | NUR ---
PT RESTING WAKES TO VERBAL STIMULI HOB ELEV MEDS GIVEN WITH APPLESAUCE
--- NOTE | 2019-06-28 07:31 | NUR ---
SHIFT SUMMARY: SHAHID WAS AWAKE DURING THE FIRST HALF OF THE SHIFT AND RESTED INTERMITTENTLY DURING THE LAST HALF. HE BECAME AGITATED FOR A SHORT TIME AT APPROX 0200, WANTING TO KNOW WHY HE WASN'T ABLE TO GO HOME. HE WAS ABLE TO CALM DOWN AFTER SPEAKING WITH HIS ON THE TELEPHONE. BED ALARM ON FOR SAFETY. HE TAKES THE NECTAR THICK LIQUIDS BY SPOON WELL, UNABLE TO GIVE HIMSELF DRINKS EFFECTIVELY D/T PARKINSONIAN TREMOR. HE IS LYING IN BED WITH THE BED ALARM ON. HE DOES NOT USE HIS CALL LIGHT. WILL REPORT TO DAY SHIFT RN.
--- NOTE | 2019-06-28 14:30 | NUR ---
DISCHARGE FAMILY EDUCATED ON DISCHARGE INSTRUCTIONS YESTERDAY AND SIGNED PAPERS FOR PT. TRANSPORT HERE TO PICK PT UP TO TAKE HOME. NOTIFIED AND AGREES TO PT DISCHARGING HOME. PERSONAL BELONGINGS SENT WITH PT. IV DAYNA'Joel.
== END 2019-06-28 14:31 | disposition home or self-care (01) | DRG 330 ==
LOC: SURS 07:49 → PRE IP 09:30 → SURS 13:33
PROVIDERS: ADMIT Surgery
PROC: 0DTF0ZZ Resection of Right Large Intestine, Open Approach (ICD-10-PCS; principal; 2019-06-22 09:30)
PROC: 0DBU0ZZ Excision of Omentum, Open Approach (ICD-10-PCS; 2019-06-22 09:30)
DX: C18.2 Malignant neoplasm of ascending colon (principal); I44.2 Atrioventricular block, complete; G20 Parkinson's disease; F17.210 Nicotine dependence, cigarettes, uncomplicated; I10 Essential (primary) hypertension; E78.5 Hyperlipidemia, unspecified; Z95.810 Presence of automatic (implantable) cardiac defibrillator; C61 Malignant neoplasm of prostate
CPT/HCPCS: 36415; 80048; 83735; 84100; 85025; 92526; 92610; 94762; 97162; 97166; 97530; 97535; A9270; A9270-GY; J0690; J1100; J1170; J1650; J1885; J2250; J2370; J2405; J2543; J2704; J2710; J3010; J7030; J7060; J7120

== ENCOUNTER 2019-07-17 10:20 | Observation (INO) | payer MEDICARE ==
[~2019-07-17] VITALS: Ht 188 cm; Wt 88.5 kg
[~2019-07-17 10:20] MED LIST changes: -ASPI81CH PO; +HYDROCODONE-AC1 EAC1 PO; +ONDA4ODT SL; +OXYC5 PO
[2019-07-17 11:16] LABS: BASOPHILS ABSOLUTE AUTO 0.02 K/mm3 (0.00-0.23); BASOPHILS PERCENT AUTO 0 % (0-2); EOSINOPHILS ABSOLUTE AUTO 0.07 K/mm3 (0.00-0.68); EOSINOPHILS PERCENT AUTO 1 % (0-6); Hematocrit 30.8 % (37.0-53.0); Hemoglobin 9.3 g/dL (13.5-17.5); IMMATURE GRAN ABSOLUTE AUTO 0.06 K/mm3 (0.00-0.10); IMMATURE GRAN PERCENT AUTO 1 % (0-1); LYMPHOCYTES ABSOLUTE AUTO 0.56 K/mm3 (0.84-5.20); LYMPHOCYTES PERCENT AUTO 7 % (21-46); MONOCYTES ABSOLUTE AUTO 0.57 K/mm3 (0.16-1.47); MONOCYTES PERCENT AUTO 7 % (4-13); Mean Corpuscular HGB 25.3 pg (26.0-34.0); Mean Corpuscular HGB Conc 30.2 g/dL (31.5-36.5); Mean Corpuscular Volume 84 fL (80-100); Mean Platelet Volume 10.2 fL (9.1-12.4); NEUTROPHILS ABSOLUTE AUTO 6.87 K/mm3 (1.96-9.15); NEUTROPHILS PERCENT AUTO 84 % (41-73); Platelet Count 244 K/mm3 (150-400); RDW Coefficient Variation 14.8 % (11.7-14.2); Red Blood Cell Count 3.67 M/mm3 (4.30-5.90); White Blood Cell Count 8.15 K/mm3 (4.00-11.30)
[2019-07-17 11:36] LABS: Albumin, Blood 2.9 g/dL (3.4-5.0); Alk Phos 94 U/L (50-136); Anion Gap 7 mmol/L (6-16); Aspartate Aminotrans (AST/SGOT 16 U/L (12-37); Bilirubin, Total 0.8 mg/dL (0.1-1.0); Blood Urea Nitrogen 15 mg/dL (8-24); Bun/Creatinine Ratio 15.2 (12.0-20.0); CO2, Blood 28 mmol/L (21-32); Calcium, Blood 8.4 mg/dL (8.5-10.1); Chloride, Blood 106 mmol/L (98-108); Creatinine, Blood 0.99 mg/dL (0.60-1.20); Glomerular Filtration Rate >60 (60-); Glucose, Blood 97 mg/dL (70-99); Potassium, Blood 3.4 mmol/L (3.5-5.5); Sodium, Blood 141 mmol/L (136-145)
[2019-07-17 11:47] LABS: Alanine Aminotransfer (ALT/SGP <6 U/L (12-78); Albumin/Globulin Ratio 0.8 (0.8-1.8); Globulin, Blood 3.6 g/dL (2.2-4.0); Total Protein, Blood 6.5 g/dL (6.4-8.2)
[2019-07-17 11:49] LABS: Source, Urine Clean Catch
[2019-07-17 12:16] LABS: Bilirubin, Urine Neg (Neg); Blood, Urine 3+ (Neg); Glucose Qualitative, Urine Neg (Neg); Ketones, Urine 3+ (Neg); Leukocyte Esterase, Urine 1+ (Neg); Nitrite, Urine Neg (Neg); Protein, Urine 3+ (Neg); Urobilinogen, Urine 1+ (Normal)
[2019-07-17 12:36] LABS: Appearance, Urine Hazy (Clear); Color, Urine Yellow (P-Yellow)
[2019-07-17 12:37] LABS: Red Blood Cells, Urine 0-2 /hpf (0-2)
[2019-07-17 12:40] LABS: Bacteria Mod /hpf; Squamous Epithelial Cells Few /hpf (Few)
[2019-07-17] MEDS ORDERED: Carbidopa-Levo1 EAC8 SL (13:08)
[2019-07-17] MEDS ORDERED: PANTOPRAZOLE SO40 M2 PO (13:09)
[2019-07-17] MEDS ORDERED: Carbidopa-Levo1 EAC1 PO (13:10)
[2019-07-17] MEDS ORDERED: PRIMIDONE PO (13:11)
[2019-07-17] MEDS ORDERED: FURO40 PO (16:12)
--- NOTE | 2019-07-17 18:06 | NUR ---
PT ARRIVED TO THE UNIT AT 1800 VIA BED, SLIDE TRANSFER. PT IS SLEEPING AT THIS TIME. AT BEDSIDE.
--- NOTE | 2019-07-17 21:06 | NUR ---
ASPIRATION RISK DUE TO HX OF CVA I CRUSHED THIS PT'S MEDS IN APPLESAUCE. I OBSERVED HIM GAGGING AND CHOKING EVEN SO. BED IS AT 90 DEGREES. I WILL MAKE THIS PT NPO FOR MY SHIFT AND PASS THIS INFORMATION OFF TO THE DAY NURSE. A SPEECH/SWALLOW EVAL WOULD GREATLY BENEFIT THIS PT. I HAVE SET UP SUCTION IN THE ROOM AND WE ARE PERFORMING ORAL CARE.
--- NOTE | 2019-07-18 04:45 | NUR ---
SHIFT SUMMARY ADMITTED FOR WEAKNESS. FOUND TO HAVE UTI. FULL CODE. WHEELCHAIR BOUND @ BASELINE, PT UNABLE TO SIT IN WHEELCHAIR OR ASSIST WITH TRANSFERS AT HOME. LIVES W/ AND HAS A CAREGIVER. PACEMAKER IN PLACE. LOVENOX FOR DVT PREVENTION, RA, Q 2 TURNS. A CARDIAC DIET IS ORDERED BUT I HAVE MADE THIS PT NPO UNTIL DAY STAFF CAN EVALUATE. I GAVE BEDTIME MEDS CRUSHED IN APPLESAUCE, WITH BED AT 90 DEGREES DUE TO HX OF CVA - PT BEGAN TO GAG AND CHOKE (I FEAR ASPIRATION). CHARGE NURSE INFORMED, RESPIRATORY THERAPY INFORMED. PALLIATIVE CARE WILL CONSULT TODAY. HEALTHCARE [facility] IS HIS DAUGHTER. 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 TELEMETRY: NSR W/BBB @ 69 BPM.
[2019-07-18 05:31] LABS: BASOPHILS ABSOLUTE AUTO 0.02 K/mm3 (0.00-0.23); BASOPHILS PERCENT AUTO 0 % (0-2); EOSINOPHILS PERCENT AUTO 2 % (0-6); Hematocrit 30.1 % (37.0-53.0); Hemoglobin 8.8 g/dL (13.5-17.5); IMMATURE GRAN ABSOLUTE AUTO 0.02 K/mm3 (0.00-0.10); IMMATURE GRAN PERCENT AUTO 0 % (0-1); LYMPHOCYTES ABSOLUTE AUTO 0.61 K/mm3 (0.84-5.20); LYMPHOCYTES PERCENT AUTO 9 % (21-46); MONOCYTES ABSOLUTE AUTO 0.64 K/mm3 (0.16-1.47); MONOCYTES PERCENT AUTO 10 % (4-13); Mean Corpuscular HGB 24.6 pg (26.0-34.0); Mean Corpuscular HGB Conc 29.2 g/dL (31.5-36.5); Mean Corpuscular Volume 84 fL (80-100); Mean Platelet Volume 9.6 fL (9.1-12.4); NEUTROPHILS PERCENT AUTO 79 % (41-73); Platelet Count 196 K/mm3 (150-400); RDW Coefficient Variation 14.6 % (11.7-14.2); RDW Standard Deviation 45.4 fL (35.1-46.3); Red Blood Cell Count 3.58 M/mm3 (4.30-5.90); White Blood Cell Count 6.69 K/mm3 (4.00-11.30)
[2019-07-18 05:54] LABS: Alanine Aminotransfer (ALT/SGP 6 U/L (12-78); Albumin, Blood 2.7 g/dL (3.4-5.0); Albumin/Globulin Ratio 0.8 (0.8-1.8); Alk Phos 85 U/L (50-136); Anion Gap 7 mmol/L (6-16); Aspartate Aminotrans (AST/SGOT 14 U/L (12-37); Bilirubin, Total 0.6 mg/dL (0.1-1.0); Blood Urea Nitrogen 14 mg/dL (8-24); Bun/Creatinine Ratio 16.1 (12.0-20.0); CO2, Blood 26 mmol/L (21-32); Calcium, Blood 7.9 mg/dL (8.5-10.1); Chloride, Blood 111 mmol/L (98-108); Creatinine, Blood 0.87 mg/dL (0.60-1.20); Globulin, Blood 3.5 g/dL (2.2-4.0); Glomerular Filtration Rate >60 (60-); Glucose, Blood 78 mg/dL (70-99); Potassium, Blood 3.4 mmol/L (3.5-5.5); Sodium, Blood 144 mmol/L (136-145); Total Protein, Blood 6.2 g/dL (6.4-8.2)
--- NOTE | 2019-07-18 09:50 | NUR ---
Clinical Visit: Pt is resting in bed with eyes closed. He awoke with voice cue. Reports that he was sleeping and he is still very tired. He denies pain and anxiety, but does state that he is fatigued and did not sleep well. Allow pt to rest at this time. He has a swallow eval today. Plan on follow up after this evaluation. Information needed to discuss prognosis and plan with family. Pt states that his and his daughter are alternate decision makers if he is unable to speak for himself. Discussed with Dr. Zhang. Pt may be at end of life stage and will need hospice services at discharge if family and pt are agreeable.
--- NOTE | 2019-07-18 18:17 | NUR ---
SHIFT SUMMARY PT ALERT AND ORIENTED THIS SHIFT. PT WEAK AND UNABLE TO CHANGE POSITION INDEPENDENTLY. PT HAD A SPEACH EVALUATION THIS MORNING AND WAS PLACED ON NPO STATUS FOR ASPIRATION PRECAUTIONS. PT'S PARACOPA SL INCREASED TO CONTINUE TO PROVIDE COVERAGE. PT MEDICATED ONE TIME FOR PAIN IN LEGS. PT PROVIDED WITH ORAL CARE THROUGHOUT THIS SHIFT. PT CURRENLTY SLEEPING IN BED.
--- NOTE | 2019-07-18 19:10 | NUR ---
Initial spiritual care note: Mr. Corley was alone in room and quite sleepy. He appears weak and confused. He does not know why he is hospitalized, but did not appear bothered by this. He was unable to hold conversation. Per chart, he is non-adventism, but I will remain available to pt and family.
--- NOTE | 2019-07-19 05:07 | NUR ---
SHIFT SUMMARY ADMITTED FOR WEAKNESS. FULL CODE. PT IS NPO AFTER FAILING SWALLOW EVAL. WE ARE STILL GIVING SUBLINGUAL CARBIDOPA. AWAITING PALLIATIVE CARE TO CONTACT DAUGHTER (POA) & FAMILY TO DECIDE ON A PLAN OF CARE. PT IS INCONTINENT, Q2 TURNS, RA, BEDREST. WHEELCHAIR @ BASELINE BUT IS TOO WEAK TO SIT IN IT OR ASSIST W/TRANSFERS. PT HAS NOT HAD A GOOD APPETITE AT HOME. HE LIVES WITH HIS AND HAS A CAREGIVER. HX: HTN, CVA, COPD, COLON RESECTION 1 MONTH AGO, DEMENTIA, COLON/PROSTATE CA, PARKINSON'S
[2019-07-19 05:47] LABS: Anion Gap 3 mmol/L (6-16); Blood Urea Nitrogen 16 mg/dL (8-24); Bun/Creatinine Ratio 23.9 (12.0-20.0); CO2, Blood 27 mmol/L (21-32); Calcium, Blood 8.2 mg/dL (8.5-10.1); Chloride, Blood 115 mmol/L (98-108); Creatinine, Blood 0.67 mg/dL (0.60-1.20); Glomerular Filtration Rate >60 (60-); Glucose, Blood 72 mg/dL (70-99); Potassium, Blood 3.4 mmol/L (3.5-5.5); Sodium, Blood 145 mmol/L (136-145)
--- NOTE | 2019-07-19 19:31 | NUR ---
SHIFT SUMMARY PT RESTING QUIETLY AT START OF SHIFT. NO S/SX'S OF DISTRESS NOTED. PT IS STRICT NPO D/T ASPIRATION. PT HAS FAILED SWALLOW EVAL SEVERAL TIMES. PALLIATIVE CARE CONSULT ORDERED AND TO MEET WITH FAMILY TOMORROW TO DISCUSS COMFORT CARE/HOSPICE. PT ADMITTED FOR WEAKNESS; WAS ABLE TO USE W/C AT BASELINE, BUT UNABLE TO TX AT THIS TIME. CT WITH CONTRAST ORDERED BY DR MARX THIS AM, BUT PT IS NPO. DR MARX NOTIFIED AND CT WAS DONE W/O CONTRAST. PT WITH HX OF RESENT COLON RESECTION D/T COLON CA AND PROSTATE CA WITH METS. AND COVER CREASER IN AND OUT TODAY. COVER CREASER VERY OVERBEARING AND DEMANDING. COVER CREASER WANTING PT TO RECEIVE PO MEDS, AND HAVING DIFFICULTY UNDERSTANDIING NPO STATUS WITH PO MEDS. REQUESTED MORPHINE GIVEN FOR PAIN EARLIER TODAY AND THEN COVER CREASER VERY RUDE AND ANGRY THAT MORPHINE WAS GIVEN. COVER CREASER REPORTED THAT SHE DIDN'T WANT THE MORPHINE GIVEN AND WANTED SOMETHING DIFFERENT. PT UNABLE TO TAKE HOME NORCO PAIN MEDICATION AT THIS TIME. PT HAD DENIED PAIN ALL DAY AND DID NOT SEEM TO BE IN ANY DISTRESS AT ALL. PT HAS DEMENTIA, BUT ATTEMPTED TO BE CO-OP WITH CARE NEEDED. CHRG RN ATTEMPTED TO TALK TO COVER CREASER, BUT COVER CREASER JUST WALKED AWAY. CALL LT IN REACH. BED ALARM ON FOR SAFETY.
--- NOTE | 2019-07-20 00:17 | NUR ---
BEGINNING SHIFT SUMMARY ASSUMED CARE OF PT AT 1900. PT IS ALERT AND ORIENTED TO SELF AND FAMILY, PT STATES THAT HE WAS INSIDE A TENNIS BALL WHEN ASKED WHAT ROOM HE WAS IN., PT IS SLEEPY WHEN TALKING. HEART SOUNDS REGULAR, LUNG SOUNDS DIMINISHED, DENIES SOB/CP AT THIS TIME. PT IS NPO STATUS DUE TO FAILED SWALLOW EVALUATIONS. PT DAUGHTER FROM [place] CAME TO SEE PT TONIGHT, SHE IS CONCERNED ABOUT THE PT BEING MORE CONFUSED, POSSIBLY DUE TO THE CANCER. FAMILY EDUCATED ABOUT WHY PT MEDICATIONS HAVE NOT BEEN GIVEN DUE TO ASPIRATION RISK. PT IS CURRENTLY SLEEPING, CALL LIGHT IN REACH, BED IN LOWEST POSTION, WILL CONTINUE TO MONITOR.
--- NOTE | 2019-07-20 04:08 | NUR ---
END SHIFT SUMMARY NO ACUTE CHANGES NOTED T/O THE NIGHT. PT WAS CAUGHT WITH HIS FOOT HANGING OFF THE BED SEVERAL TIMES. PT IS STILL ONLY ALERT TO SELF. ORAL CARE PROVIDED. PT SLEPT MOST OF THE NIGHT. CALL LIGHT IN REACH, BED IN LOWEST POSTION, WILL CONTINUE TO MONITOR UNTIL DAYSHIFT NURSE ARRIVES.
--- NOTE | 2019-07-20 11:06 | NUR ---
DR. HARRIS ORDERED TO GIVE PT FLUID. DR. HARRIS SPOKE WITH PT AND DAUGHTER, MOISES, ABOUT TREATMENT OPTIONS AND COMFORT CARE. FAMILY IS LEANING TOWARDS COMFORT. ASKED TO ALLOW PT TO DRINK WEI FLUIDS. PT GIVEN NECTAR THICK LIQUID AND SAT UPRIGHT IN BED. WILL CONTINUE TO MONITOR.
--- NOTE | 2019-07-20 11:28 | NUR ---
Clinical Visit: Pt alert and awake. He is getting suctioned by nursing at this time. No s/s of distress at this time. Daughter, Carlyn, is at bedside. Discussed care and future care with her. She is requesting that status of the pt not change until she is able to get her mother from home in [place] and bring her in. Carlyn is coordinating family members to all be here at the hospital around 1pm. She would like everything reviewed at that time with all involved. Her biggest concern is the pt's discharge plan. She is concerned that her mother is too advanced in age and frail to take care of the pt at home. She only has limited caregiver hours for help at home at this point. Placement discussed as an option. Will involve antoine Dorado, for her direction in this matter. Carlyn is asking about adult foster care homes for him. Will follow up with care asst to see if this is possible. Plan made for family meeting and decision making at 1pm today.
--- NOTE | 2019-07-20 11:42 | NUR ---
PT CHANGED TO DNR PT CHANGED TO DNR PER PT AND DAUGHTER WISHES. WRISTBAND VERIFIED BY SHAHLA GAXIOLA RN. PLACED TO L WRIST. DNR ORDERED BY DR. HARRIS.
--- NOTE | 2019-07-20 15:00 | NUR ---
Conversation with family: Spoke with the pt's daughters, Maribel and Carlyn, along with the pt's . Reviewed current illness and cancer. The decision for comfort care and hospice was made by family. They will pursue placement for him, as isn't able to take care of him at home. Comfort measures order/meds updated in [facility]. Palliative care will remain available.
--- NOTE | 2019-07-20 17:04 | NUR ---
COMFORT CARE INICIATED COMFORT CARE INICIATED. PT COMFORTABLE AT THIS TIME. VISITING WITH FAMILY IN ROOM AT THIS TIME. WILL CONTINUE TO MONITOR.
--- NOTE | 2019-07-20 18:24 | NUR ---
SHIFT SUMMARY PT AGITATED WITH THIS RN THIS EVENING. PT AGREED TO TAKE MEDS FROM ANOTHER NURSE. PT EAT UP IN CHAIR & EAT DINNER WITH THE AIDE. ORAL CARE COMPLETED AFTER DINNER. PT DENIES NEED FOR PAIN AT THIS TIME. APPEARS COMFORTABLE IN CHAIR. NO OTHER CHANGES IN ASSESSMENT AT THIS TIME. WILL CONTINUE TO MONITOR FOR COMFORT UNTIL TURNOVER IS COMPLETE.
--- NOTE | 2019-07-20 22:34 | NUR ---
COMFORT CARE ASSESSMENT PT WAS VERY AGITATED WHEN AIR DEFENSE CONTROL OFFICER ENTERED ROOM TO CHANGE PT. SITUATION ESCALATED AND PT SWUNG FIST AT CNAS. PT WAS LEFT ALONE TO TO CALM DOWN WHILE AIR DEFENSE CONTROL OFFICER GOT NURSE. THIS NURSE ASKED PT IF IT WAS OK TO CHANGE HIM, PT AGREED. WHEN CHANGING THE PT, PT GOT AGITATED AGAIN AND SWUNG AGAIN. PT WAS CHANGED AND LEFT ALONE BUT REFUSED MEDICATIONS. PT STILL REFUSES MEDICATIONS AFTER 1 HOUR AND IS AGNRY WHEN TALKED TO. CALL LIGHT IN REACH, BED IN LOWEST POSTION, WILL CONTINUE TO MONITOR.
--- NOTE | 2019-07-21 04:35 | NUR ---
SHIFT SUMMARY ASSUMED CARE OF PT AT 1900. PT IS A/O TO SELF AND FAMILY, PT IS VERY CONFUSED TONIGHT AND WAS COMBATIVE AT FIRST, T/O THE NIGHT PT HAS BECOME MORE COMPLIANT WITH CARE. PT TRIED TO GET OUT OF BED MULTIPLE TIMES BUT WAS REDIRECTED OR HE FELL ASLEEP. PT IS VERY CONFUSED AND STATES THAT HE IS LEAVING THE HOSPITAL. PT SLEPT LITTLE TONIGHT. CALL LIGHT IN REACH, BED IN LOWEST POSTION, BED ALARM ON, WILL CONTINUE TO MONITOR UNTIL DAYSHIFT NURSE ARRIVES.
--- NOTE | 2019-07-21 11:50 | NUR ---
HE HAS SET THE BED ALARM OFF ALREADY THIS MORNING THINKING HE IS SUPPOSE TO BE LEAVING TODAY. HE IS QUITE CONFUSED BUT COOPERATING WITH CARE. HE DENIES ANY PAIN.
--- NOTE | 2019-07-21 11:52 | NUR ---
BEFORE HIS ARRIVED, HE WAS MORE RESTLESS. HE SETTLED DOWN THOUGH WITH US COMFORTING HIM.HE DIDN'T RE-ORIENT BUT WAS COOPERATIVE. HE ATE SOME BREAKFAST TWICE, SOME FROM OUR KITCHEN AND SOME FROM [employer]. HE HAS THICKENED LIQUIDS.
--- NOTE | 2019-07-21 11:55 | NUR ---
HAS GONE HOME. NOW DAUGHTERS ARE PRESENT. NO CHANGES.
--- NOTE | 2019-07-21 14:35 | NUR ---
HE IS ASLEEP. DAUGHTERS HAVE GONE. HE LOOKS VERY COMFORTABLE.
--- NOTE | 2019-07-21 17:53 | NUR ---
HIS JUST TOOK HIM OUTSIDE IN A W/C FOR A CIGARETTE. THAT MADE HIM HAPPY. NO OTHER CHANGES.
--- NOTE | 2019-07-21 17:55 | NUR ---
HE HAS LOTS OF FAMILY SUPPORT, INCLUDING A ROOM FULL RIGHT NOW. HE IS RESTING IN BED, NOT MUCH INTERESTED IN DINNER. HE CONTINUES ON MECHANICAL SOFT AND HONEY THICK LIQUIDS. HE WAS PUSHED OUTSIDE ONCE TODAY FOR A CIGARETTE. HE WAS AGITATED THIS AM BUT CALMED BY STAFF NOT MEDICATION. HE HAS HAD A GOOD DAY.
--- NOTE | 2019-07-22 03:47 | NUR ---
SHIFT SUMMARY ASSUMED CARE OF PT AT 1900. PT WAS AGITATED AT THE BEGINNING OF THE SHIFT AND HIS WAS CALLED, NO MEDICATIONS NEEDED, PT WAS ABLE TO BE REDIRECTED, PT CALMED DOWN AFTER TALKING TO HIS . PT SLEPT T/O THE NIGHT, PT WAS NOT ABLE TO BE AWOKEN ENOUGH TO SAFELY RECEIVE HIS NIGHTLY MEDICATIONS. CALL LIGHT IN REACH, BED IN LOWEST POSTION, WILL CONTINUE TO MONITOR UNTIL DAYSHIFT NURSE ARRIVES.
--- NOTE | 2019-07-22 06:10 | NUR ---
MEDICATIONS PT WAS VERY SLEEPY THIS AM, MEDICATIONS HELD DUE TO LETHARGY AND PT NOT BEING ABLE TO WAKE UP FULLY. CALL LIGHT IN REACH, BED IN LOWEST POSTION, BED ALARM ON, WILL CONTINUE TO MONITOR UNTIL DAYSHIFT NURSE ARRIVES.
--- NOTE | 2019-07-22 07:42 | NUR ---
AM ASSESSMENT- PT LYING IN BED ASLEEP, AWAKENS TO VERBAL STIMULI. PT A/O TO SELF ONLY. PT DENIES ANY PAIN OR OTHER COMPLAINTS. LS DIMINISHED, ON RA. HRR. DNR WRISTBAND TO LEFT WRIST. NO IV ACCESS. PT PLEASANT AND COOPERATIVE AT THIS TIME. BED ALARM ON AND CALL LIGHT IN REACH. PT DENIES ANY NEEDS AT THIS TIME.
--- NOTE | 2019-07-22 12:38 | NUR ---
Comfort Care Visit Pt resting in bed upon arrival. Pt's at bedside assisting with feeding Pt lunch. Pt eleanor pain and dyspnea at this time. Pt and report no concerns at this time. Pt appears comfortable at this time. Spoke with bedside RN Marbella and discussed case. Palliative Care will remain available
--- NOTE | 2019-07-22 12:38 | NUR ---
PT COMFORT CARE, PER DR HARRIS PT CAN HAVE WHATEVER HE WANTS. PT AND SPOUSE REQUESTING THIN LIQUIDS AND SOFT BITE SIZE MEALS.
--- NOTE | 2019-07-22 16:16 | NUR ---
SHIFT SUMMARY- PT COMFORT CARE. PT HAS BEEN PLEASANT AND COOPERATIVE T/O THE DAY. PT HAS BEEN SLEEPING OFF AND ON BUT DOES AWAKE AND CONVERSATES. A/O TO SELF AND FAMILY ONLY. LS DIMINISHED, ON RA. HRR. PT REQUESTING ICE WATER, DIET CHANGED TO SOFT BITE SIZE AND THE LIQUIDS PT IS COMFORT CARE. SPOUSE AT BEDSIDE AT TIMES T/O THE DAY. PT DENIES ANY COMPLAINTS. INCONT OF URINE. POSS D/C TO [facility] TOMORROW ON HOSPICE. NO OTHER ACUTE CHANGES THIS SHIFT.
--- NOTE | 2019-07-22 17:55 | NUR ---
SACRAL DRESSING APPLIED DUE TO REDNESS. NO OPEN AREAS NOTED. BEDBATH COMPLETED.
--- NOTE | 2019-07-23 14:53 | NUR ---
Pt resting in bed and denies pain at this time. Family at bedside. Plan for Pt to discharge to [facility] on hospice today. Family report no concerns at this time. Pt appears comfortable with no S/S of distress at this time. Palliative Care will remain available.
--- NOTE | 2019-07-23 15:05 | NUR ---
PT. DISCHARGED TO [facility] ON HOSPICE WITH [facility]/ REPORT CALL TO BOBBY GONZALEZ RN. TRANSPORT[place] [facility] [place]
== END 2019-07-23 15:16 ==
LOC: ER 10:20 → MEDS 10:21 → ENPENDDIS 07-23 14:46 → MEDS 07-23 15:16
PROVIDERS: Emergency Medicine; Hospitalist; Nurse Practitioner Acute Care; ADMIT Internal Medicine
DX: C18.2 Malignant neoplasm of ascending colon (principal); G20 Parkinson's disease; F02.80 Dementia in other diseases classified elsewhere, unspecified severity, without behavioral disturbance, psychotic disturbance, mood disturbance, and anxiety; E46 Unspecified protein-calorie malnutrition; E87.6 Hypokalemia; R33.9 Retention of urine, unspecified; K21.9 Gastro-esophageal reflux disease without esophagitis; Z66 Do not resuscitate; I12.9 Hypertensive chronic kidney disease with stage 1 through stage 4 chronic kidney disease, or unspecified chronic kidney disease; N18.9 Chronic kidney disease, unspecified; F17.200 Nicotine dependence, unspecified, uncomplicated; E78.5 Hyperlipidemia, unspecified; J44.9 Chronic obstructive pulmonary disease, unspecified; Z85.46 Personal history of malignant neoplasm of prostate; Z86.73 Personal history of transient ischemic attack (TIA), and cerebral infarction without residual deficits; Z88.5 Allergy status to narcotic agent; Z79.899 Other long term (current) drug therapy; Z95.0 Presence of cardiac pacemaker
CPT/HCPCS: 36415; 51701; 71045; 71260; 74177; 80048; 80053; 81001; 84153; 85025; 87077; 87086; 87186; 92526; 92610; 93005; 93010; 94760; 96361; 96365; 96366; 96367; 96372; 96375; 96376; 97110; 97162; 97166; 97530; 97535; 99285-25; G0378; J0360; J0696; J1630; J1650; J2270; J3480; J7030; J7120; Q9967